=== PATIENT | male | born 1960 | race Caucasian/White ===

== ENCOUNTER 2017-12-20 15:36 | Emergency (ER) | payer OTHER, SELFPAY ==
[2017-12-20 15:37] VITALS: BP 179/91; PULSE 70; RESP 18; TEMP 36.2; O2SAT 98; BMI 26.6
[2017-12-20 15:40] VITALS: PULSE 70; RESP 15; O2SAT 96; O2SAT 97
--- NOTE | 2017-12-20 15:43 | EKG12_ITS ---
Test Reason : SOB Blood Pressure : / mmHG Vent. Rate : 072 BPM Atrial Rate : 072 BPM P-R Int : 160 ms QRS Dur : 086 ms QT Int : 376 ms P-R-T Axes : 021 000 000 degrees QTc Int : 411 ms Normal sinus rhythm Normal ECG Confirmed by SAMARIA KEARNS ([id number]), business editor RIAZ SALDIVAR ([id number]) on 12/24/2017 1:38:52 PM Referred By: MCKAYLA Confirmed By:SAMARIA KEARNS
--- NOTE | 2017-12-20 15:45 | RAD_ITS ---
STUDY: X-RAY CHEST REASON FOR EXAM: Male, 57 years old. Chest pain and cough TECHNIQUE: Single AP portable view of the chest. COMPARISON: None. FINDINGS: EKG leads overlie the chest The lungs are clear and expanded. There is no demonstrated pleural abnormality. Normal size heart. Normal mediastinum and yarely. Normal visualized pulmonary arteries. Normal visualized aortic arch and descending thoracic aorta. Normal visualized thoracic spine. Normal visualized ribs, clavicles, and shoulders. There is no demonstrated abnormality of the visualized soft tissue structures of the upper abdomen. RAD/Chest 1 View (Portable) IMPRESSION: Normal x-ray examination of the chest. Electronically Signed: Lorenzo Menard MD at 16:12 EDT , Service support ,
[2017-12-20 15:56] VITALS: O2SAT 99
--- NOTE | 2017-12-20 15:57 | ED.DCSUM_ITS ---
- ER Visit Summary Date of Service: 12/20/17 Chief Complaint: Shortness of breath History of Present Illness: The patient is a 57 M states that today around noon he just felt short of breath. No chest pain. No hemoptysis. No cough or fever. Denies any history of asthma, COPD or any cardiac disease. Says he actually feels better he is up walking around. Denies any change laying supine. Denies any recent travel, surgery or mobilization. Denies any history of prior DVT or PE. No leg pain or swelling. No hemoptysis. Physical Examination: Well-appearing middle-age male. Vital signs are stable and afebrile. He does not look septic or toxic. He is in no acute distress. His pulse ox is 98% on room air with no signs of hypoxia. HEENT exam unremarkable. Neck nontender, no lymphadenopathy nor any JVD. Trachea midline. Lungs clear to auscultation bilaterally. Equal symmetrical. No rales , rhonchi or wheezing. Heart regular rate and rhythm no murmur. Rate about 70. Chest wall nontender. Abdomen soft nontender normal bowel sounds no peritoneal signs. Moving all 4 extremities. Vital signs are full range of motion. Calves are nontender without edema or cords. Radial pulses are equal symmetrical. Back exam normal. Skin exam normal. Neurologic exam no signs of any focal motor deficits Test Results: See normal white count of 6. Normal H&H. Chemistries normal normal creatinine and gap. Troponin normal. EKG sinus rhythm rate of 72 no acute signs of ID or ischemia. Chest x-ray normal cardiac silhouette and mediastinum. Normal lung shoemaker. Read as normal both by myself the radiologist. Emergency Department Course and Treatment: Patient with atypical dyspnea will undergo workup. Treatment Plan: Repeat exam the patient is doing well at night 24. We went over all his test results. He will need follow-up. At this time I do not have any strong suspicion this was cardiac disease better with walking and has had no recent exertional chest pain or exertional dyspnea. There is no signs of pneumonia. He has absolutely no risk factors for DVT or PE and no physical findings of these. Disposition: Discharge Impression: Acute dyspnea of uncertain etiology This note was generated with [employer] dictation software. It may contain incorrect words, spelling, and punctuation that were not noted in review of the chart prior to signing ED Disposition - Plan for ED Patient: Chief Complaint: Shortness of Breath Referrals: [facility] Doctor,Out of [NON-STAFF] -
[2017-12-20 16:17] VITALS: BP 172/89; PULSE 72; RESP 15; O2SAT 97
[2017-12-20 16:18] LABS: Absolute Lymphocyte Count 1.92 X10^3/ul (0.83-4.51); Absolute Neutrophil Count 3.9 X10^3/uL (2.0-7.7); Basophil# 0.03 X10^3/uL; Basophil% 0.5 % (0-1); Eosinophil# 0.05 X10^3/uL; Eosinophils% 0.8 % (0-5); Hematocrit 45.4 % (40-54); Hemoglobin 15.2 g/dl (13.0-16.5); Lymphocyte # 1.92 X10^3/ul (4.0); Lymphocyte % 29.9 % (19-41); Mean Corp Hgb Conc 33.5 g/gl (32-36); Mean Corpuscular Hgb 30.8 pg (27.0-32.0); Mean Corpuscular Volume 91.9 fL (80-94); Mean Platelet Vol. 9.5 fl (6.2-12.0); Monocyte# 0.53 X10^3/uL; Monocyte% 8.3 % (0-10); Neutrophil # 3.88 X10^3/uL (2.7-7.7); Neutrophil % 60.3 % (47-70); Platelet Count 263 K/mm3 (150-450); RBC Distribution Width CV 13.6 % (11.6-14.6); RBC Distribution Width SD 45.6 fl (35.1-43.9); Red Blood Count 4.94 M/mm3 (4.6-6.2); White Blood Count 6.4 K/mm3 (4.4-11.0)
[2017-12-20 16:20] LABS: POSITIVE COUNT NO; POSITIVE DIFFERENTIAL NO; POSITIVE MORPHOLOGY NO
[2017-12-20 16:30] LABS: Anion Gap 9 (5-15); BUN 13 mg/dL (7-18); BUN/Creat Ratio 13.7 RATIO (10-20); Calcium,Total 9.4 mg/dL (8.5-10.1); Chloride 106 mmol/L (98-107); Creatinine, Serum 0.95 mg/dL (0.70-1.30); EST Glomerular Filtration Rate 87 mL/min (>60); Est Glom Filt Rate - Afr Amer 105 mL/min (>60); Estimated Creatinine Clearance 86.82 ml/min; Glucose 95 mg/dL (74-106); Sodium Level 142 mmol/L (136-145)
[2017-12-20 18:13] VITALS: BP 166/80; PULSE 60; RESP 17; O2SAT 92
--- NOTE | 2017-12-20 19:26 | ED.DEP ---
ED Disposition - Plan for ED Patient: Disposition: Home or Assisted Living Chief Complaint: Shortness of Breath Instructions: ED Dyspnea Shortness of Breath Referrals: [facility],Out of [NON-STAFF] - As soon as possible Additional Instructions: On follow-up your doctor for further evaluation. All your tests tonight in the emergency department are normal. I do not have a specific cause review shortness of breath.
[2017-12-20 19:34] VITALS: BP 162/85; PULSE 58; RESP 14; O2SAT 96
== END 2017-12-20 19:39 | disposition home or self-care (01) ==
PROVIDERS: Emergency Provider Emergency Medicine; Family Provider Family Medicine; PCP Family Medicine
DX: R06.02 Shortness of breath (principal); R03.0 Elevated blood-pressure reading, without diagnosis of hypertension; Z87.891 Personal history of nicotine dependence
CPT/HCPCS: 71045; 80048; 84484; 85025; 93005; 99284; A4216

== ENCOUNTER 2020-12-20 10:01 | Inpatient (IN) | payer OTHER, SELFPAY ==
[2020-12-20] VITALS (23 sets, daily range): BP systolic 108–154; BP diastolic 58–78; PULSE 78–109; RESP 14–36; TEMP 36.6–38.2; O2SAT 72–97; BMI 24.3; BMI 24.0
--- NOTE | 2020-12-20 10:14 | EKG12_ITS ---
Test Reason : SOB Blood Pressure : / mmHG Vent. Rate : 087 BPM Atrial Rate : 087 BPM P-R Int : 146 ms QRS Dur : 088 ms QT Int : 340 ms P-R-T Axes : 014 -07 017 degrees QTc Int : 409 ms Poor data quality, interpretation may be adversely affected Normal sinus rhythm Normal ECG Confirmed by ABRAHAM CONNOR, NORRIS ([id number]), film editor ADRYAN ISRAEL ([id number]) on 12/21/2020 12:41:55 PM Referred By: DEMI Confirmed By:NORRIS ROSARIO MD
--- NOTE | 2020-12-20 10:15 | EDS_ITS ---
HPI History of Present Illness Chief Complaint: Shortness of Breath Informant: patient and spouse/S.O. 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 Patient traveled to [place] last week to be with family. [place]. By Saturday he began to feel shortness of breath that has progressively worsened through the weekend. He states he was trying to make it to his appointment with his oncologist Dr. Durand today but after going down the stairs then back up he was significantly labored breathing. He notes he has had phlegm in the morning which has been unusual for him. He notes several minutes of a fever of 100.6 this morning and last night. He denies any chest pain back pain shoulder pain. No prior history of DVT or PE. Last chemotherapy treatment was about 1-1/2 weeks ago. He does not have a port. No diarrhea or vomiting. Since beginning morphine with Dilaudid for breakthrough pain several weeks ago he has felt more out of it. He denies any prior cardiac history. No prior issues with pleural effusions. [facility] Medical History Lung cancer Home Medications [id number] [Century Adults 50 Plus Tablet] 1 tab PO DAILY 12/20/17 [History Last Taken 12/20/17] Lactobacillus acidophilus 10 mg PO DAILY 12/20/20 [History Last Taken Unknown] dexamethasone [Decadron] 2 mg PO BID 12/20/20 [History Last Taken Unknown] ergocalciferol (vitamin D2) 1 unit PO QWEEK 12/20/20 [History Last Taken Unknown] hydromorphone 2 mg PO Q6H PRN 12/20/20 [History Last Taken Unknown] morphine 15 mg PO BID PRN 12/20/20 [History Last Taken Unknown] ondansetron HCl [Zofran] 8 mg PO Q8H 12/20/20 [History Last Taken Unknown] polyethylene glycol 3350 [Miralax] 17 g PO DAILY 12/20/20 [History Last Taken U nknown] promethazine 25 mg PO Q6H PRN 12/20/20 [History Last Taken Unknown] trazodone 50 - 100 mg PO QHS PRN 12/20/20 [History Last Taken Unknown] Allergy/AdvReac Type Severity Reaction Status Date / Time No Known Allergies Allergy Verified 12/20/20 10:02 Social History (Updated 12/20/20 @ 10:[address] Yohan Childress, DO) Smoking Status: Former smoker substance use type: does not use ROS ROS ED Constitutional Constitutional ED: Denies chills or weight loss Eyes Eyes: Denies change in vision or diplopia ENT ENT ED: Denies ear pain, rhinorrhea or sore throat Cardiovascular Cardiovascular: Denies chest pain, orthopnea, palpitations or racing heartbeat Respiratory/Chest Respiratory/Chest: Reports cough, dyspnea, dyspnea on exertion and sputum; Denies orthopnea Gastrointestinal Gastrointestinal: Reports abdominal pain; Denies diarrhea, nausea or vomiting Genitourinary Genitourinary ED: Denies dysuria, hematuria or urinary frequency Musculoskeletal Musculoskeletal: Reports back pain; Denies arthralgias or myalgias Integumentary Denies abscess or rash Neurologic Neurologic: Denies headache(s) or weakness Psychiatric Psychiatric: Denies anxiety, depression, suicidal ideation or suicidal thoughts Endocrine Endocrinology: Denies polydipsia, polyphagia or polyuria Allergic/Immunologic Allergic/Immunologic ED: Denies mouth swelling, tongue swelling or urticaria EXAM Physical Exam Const Vital Signs: 12/20/20 10:04 12/20/20 10:07 12/20/20 10:21 Temperature 98.5 F 98.5 F Temperature Source Oral Oral Pulse Rate 94 95 Respiratory Rate 36 H 32 H Respiratory Effort Short of Breath Labored Respiratory Depth Normal Respiratory Pattern Tachypnea Blood Pressure 135/70 H 135/70 H Blood Pressure Mean 91 91 Pulse Ox 72 95 Oxygen Delivery Method Room Air Nasal Cannula Nasal Cannula Oxygen Flow Rate (L/min) 4 4 12/20/20 10:22 12/20/20 11:14 12/20/20 11:17 Temperature 98.5 F 98.4 F 98.4 F Temperature Source Oral Oral Oral Pulse Rate 86 89 Respiratory Rate 23 H 25 H Respiratory Effort Respiratory Depth Respiratory Pattern Blood Pressure 132/59 H 120/68 Blood Pressure Mean 83 85 Pulse Ox 97 93 Oxygen Delivery Method Nasal Cannula Nasal Cannula Oxygen Flow Rate (L/min) 2 Positive well nourished and well developed General Appearance ED: well developed HEENT Reports normocephalic, head/scalp atraumatic and moist mucous membranes Eyes PERRL and EOMs intact bilaterally Neck no lymphadenopathy, supple and no JVD Resp clear to auscultation bilaterally Resp Narrative: Patient is tachypneic. Cardio regular rate, regular rhythm and no murmurs GI normal to inspection, nondistended, normoactive bowel sounds and non-tender Palpation: soft Back/Spine no CVA tenderness and normal ROM Extremity normal to inspection General Extremety ED: Negative for edema General Extremity: Negative for edema Neuro oriented x3 and CN's II-XII intact bilaterally Sensorium / Orientation: alert Motor Exam: strength 5/5 throughout Psych mental status grossly normal Mood & Affect: Negative for depressed or tearful Skin no rashes or lesions noted and no wounds MDM MDM MDM Narrative Medical decision making narrative: Patient is 72% on room air. EKG is a normal sinus rhythm. Troponin is 5.5. CTA of the chest demonstrates pulmonary embolism of the left upper lobe. I spoke with his oncologist Dr. Durand. We will plan on admitting him for further management. Hospitalist will be paged. Lab Data Attestation: I reviewed the patient's lab results. Labs: Laboratory Results - last 24 hr 12/20/20 12/20/20 12/20/20 10:28 10:28 10:28 WBC 9.9 RBC 3.63 L Hgb 11.1 L Hct 34.1 L MCV 93.9 MCH 30.6 MCHC 32.6 RDW Std Deviation 58.4 H RDW Coeff of Mathieu 17.1 H Plt Count 244 MPV 8.5 Immature Gran % (Auto) 1.100 H Neut % (Auto) 87.7 H Lymph % (Auto) 7.0 L [place] % (Auto) 3.8 Eos % (Auto) 0.2 Baso % (Auto) 0.2 Absolute Neuts (auto) 8.6 H Absolute Lymphs (auto) 0.69 L Nucleated RBC % 0 PT 14.1 INR 1.2 APTT 24.0 L Sodium 133 L Potassium 3.9 Chloride 101 Carbon Dioxide 25.0 Anion Gap 7 BUN 14 Creatinine 0.69 L Estim Creat Clear Calc 115.27 Est GFR (MDRD) Af Amer 150 Est GFR (MDRD) Non-Af 124 BUN/Creatinine Ratio 20.3 H Glucose 91 Lactic Acid Calcium 8.3 L Total Bilirubin 0.40 AST 70 H ALT 48 Alkaline Phosphatase 134 H Troponin I High Sens 5.5 Total Protein 6.8 Albumin 3.0 L Globulin 3.8 Albumin/Globulin Ratio 0.8 L 12/20/20 10:28 WBC RBC Hgb Hct MCV MCH MCHC RDW Std Deviation RDW Coeff of Mathieu Plt Count MPV Immature Gran % (Auto) Neut % (Auto) Lymph % (Auto) [place] % (Auto) Eos % (Auto) Baso % (Auto) Absolute Neuts (auto) Absolute Lymphs (auto) Nucleated RBC % PT INR APTT Sodium Potassium Chloride Carbon Dioxide Anion Gap BUN Creatinine Estim Creat Clear Calc Est GFR (MDRD) Af Amer Est GFR (MDRD) Non-Af BUN/Creatinine Ratio Glucose Lactic Acid 1.6 Calcium Total Bilirubin AST ALT Alkaline Phosphatase Troponin I High Sens Total Protein Albumin Globulin Albumin/Globulin Ratio Radiography Diagnostic Testing: Radiology Impression Chest CTA 12/20/20 11:00 IMPRESSION: Pulmonary embolism involving the branches of the left upper lobe pulmonary artery. Mediastinal and hilar lymphadenopathy as well as a mass in the anterior superior aspect of the mediastinum as described. Spiculated nodule in the left upper lobe. Diffuse groundglass appearance with the scarring worse in the right hemithorax. Liver metastasis. Retroperitoneal lymphadenopathy. Electronically Signed: Keny Dickey MD at 11:25 EDT , Service support , EKG Initial EKG: Attestation: I personally reviewed and interpreted this EKG as follows: Comments: EKG demonstrates a normal sinus rhythm at a ventricular rate of 87 bpm. Discharge Plan Dx/Rx/DC Orders Clinical Impression: Pulmonary embolism, Acute hypoxemic respiratory failure Disposition Disposition: Acute Care [facility]
[2020-12-20] MEDS: 0.9% Normal Saline 1,000 ML 999 ML IV (10:34)
[2020-12-20 10:37] LABS: Absolute Lymphocyte Count 0.69 X10^3/uL (0.83-4.51); Absolute Neutrophil Count 8.6 X10^3/uL (2.0-7.7); Basophil# 0.02 X10^3/uL; Basophil% 0.2 % (0-1); Eosinophil# 0.02 X10^3/uL; Eosinophils% 0.2 % (0-5); Hematocrit 34.1 % (40-54); Hemoglobin 11.1 g/dL (13.0-16.5); Lymphocyte # 0.69 X10^3/ul (0.83-4.51); Mean Corp Hgb Conc 32.6 g/dL (32-36); Mean Corpuscular Hgb 30.6 pg (27.0-32.0); Mean Corpuscular Volume 93.9 fL (80-94); Mean Platelet Vol. 8.5 fl (6.2-12.0); Monocyte# 0.37 X10^3/uL; Monocyte% 3.8 % (0-10); NRBC Flagged by Analyzer 0 % (0-5); Neutrophil # 8.64 X10^3/uL (2.7-7.7); Neutrophil % 87.7 % (47-70); Platelet Count 244 K/mm3 (150-450); RBC Distribution Width CV 17.1 % (11.6-14.6); RBC Distribution Width SD 58.4 fl (35.1-43.9); Red Blood Count 3.63 M/mm3 (4.6-6.2); White Blood Count 9.9 K/mm3 (4.4-11.0)
[2020-12-20 10:47] LABS: International Normalized Ratio 1.2; Prothrombin Time (Protime)PT. 14.1 SECONDS (11.7-14.9)
[2020-12-20 10:58] LABS: ALB/GLOB Ratio 0.8 RATIO (0.9-2.4); AST(SGOT) 70 U/L (15-37); Alanine Aminotransfer ALT/SGPT 48 U/L (16-61); Alkaline Phosphatase 134 U/L (45-117); Anion Gap 7 (5-15); BUN 14 mg/dL (7-18); BUN/Creat Ratio 20.3 RATIO (10-20); Calcium,Total 8.3 mg/dL (8.5-10.1); Chloride 101 mmol/L (98-107); Creatinine, Serum 0.69 mg/dL (0.70-1.30); EST Glomerular Filtration Rate 124 mL/min (>60); Est Glom Filt Rate - Afr Amer 150 mL/min (>60); Estimated Creatinine Clearance 115.27 ml/min; Globulin 3.8 g/dL (2.2-4.2); Glucose 91 mg/dL (74-106); Potassium 3.9 mmol/L (3.5-5.1); Protein, Total 6.8 g/dL (6.4-8.2); Sodium Level 133 mmol/L (136-145); Troponin-I HS 5.5 pg/mL (3.0-78.5)
--- NOTE | 2020-12-20 11:00 | CT_ITS ---
STUDY: CTA CHEST REASON FOR EXAM: Male, 60 years old. Hypoxia RADIATION DOSAGE (If Supplied By Facility): CTDIvol = ( 17.23 ) mGy, DLP = ( 387.49 ) mGycm TECHNIQUE: The examination was performed with the intravenous administration of IV 100mL Isovue-370. Post-processing of the angiographic images was performed, with multiplanar reformation and 3D reconstruction. Individualized dose optimization techniques were used for this CT. COMPARISON: None. FINDINGS: There is evidence of a intraluminal filling defects in branches of the left upper lobe pulmonary artery in keeping with left pulmonary arterial embolism. Normal thoracic aorta and visualized great vessels. There is no demonstrated aortic dissection. Normal heart and pericardium. There is evidence of a mediastinal lymphadenopathy. There is a 4.3 cm x 4.3 cm x 4.1 cm soft tissue mass in the anterior superior mediastinum. This causes narrowing of the left brachiocephalic vein as it enters the superior vena cava. The soft tissue mass extends into the left hilar and perihilar region. There is evidence of subcarinal lymphadenopathy. Right hilar lymphadenopathy as well. Normal visualized trachea and bronchi. There is elevation of the right hemidiaphragm. There is evidence of diffuse groundglass appearance in both lungs worse in the right lung with multiple bullous changes. There is a 2.1 cm x 1.1 cm spiculated nodule in the anterior aspect of the left upper lobe. 6 mm nodule in the anterior aspect of the left lower lobe abutting the major fissure. Normal pleura. Normal chest wall structures. Diffuse sclerotic bony metastasis. Limited visualization of the liver demonstrates multiple hypodense nodules suggestive of liver metastasis. There is evidence of retroperitoneal lymphadenopathy. There is evidence of a 9 mm cyst in the upper pole of the left kidney. CT/CTA Chest W/WO Contrast IMPRESSION: Pulmonary embolism involving the branches of the left upper lobe pulmonary artery. Mediastinal and hilar lymphadenopathy as well as a mass in the anterior superior aspect of the mediastinum as described. Spiculated nodule in the left upper lobe. Diffuse groundglass appearance with the scarring worse in the right hemithorax. Liver metastasis. Retroperitoneal lymphadenopathy. Electronically Signed: Keny Dickey MD at 11:25 EDT , Service support ,
[2020-12-20 11:02] LABS: Lactic Acid 1.6 mmol/L (0.4-1.9)
[2020-12-20] MEDS: Enoxaparin 80 MG/0.8 ML Syringe SC (12:04)
[2020-12-20] MEDS: 0.9% Normal Saline 1,000 ML 75 ML IV (13:17)
[2020-12-20] MEDS: 0.9% Saline Lock 10 ML Syringe IV ×3 (13:18→21:13)
--- NOTE | 2020-12-20 15:12 | PCM.HP.STD ---
Documented by User: Eugenie Ramey NP, FINAL TOUCH UP PAINTER-C 12/20/20 15:28 HPI - General General Date of Admission: 12/20/20 Chief Complaint: Shortness of breath. HPI Narrative LESLY MALDONADO, is a 60 M who presents to the emergency room due to shortness of breath. Patient states he traveled to [place] recently. On Saturday prior to returning home he noticed mild shortness of breath which is worsened since that time. He returned home on Saturday and his shortness of breath had worsened at that point. He denies lightheadedness, chest pain or other associated symptoms. He denies history of DVT/PE. He states he checked his oxygen level with a pulse oximeter at home this morning and it read 73%. He is currently undergoing chemotherapy for small cell lung cancer with last treatment December 02. He denies other medical history. He is a former smoker, quit 3 years ago. [facility] Medical History (Updated 12/20/20 @ 11:[address] Yohan Childress, DO) Lung cancer Home Medications [id number]-VZ-lycopen-lutein [Century Adults 50 Plus Tablet] 1 tab PO DAILY 12/20/17 [History Last Taken 12/20/17] Lactobacillus acidophilus 10 mg PO DAILY 12/20/20 [History Last Taken Unknown] dexamethasone [Decadron] 2 mg PO BID 12/20/20 [History Last Taken Unknown] ergocalciferol (vitamin D2) 1 unit PO QWEEK 12/20/20 [History Last Taken Unknown] hydromorphone 2 mg PO Q6H PRN 12/20/20 [History Last Taken Unknown] morphine 15 mg PO BID 12/20/20 [History Last Taken Unknown] ondansetron HCl [Zofran] 8 mg PO Q8H PRN PRN 12/20/20 [History Last Taken Unknown] polyethylene glycol 3350 [Miralax] 17 g PO DAILY 12/20/20 [History Last Taken Unknown] promethazine 25 mg PO Q6H PRN 12/20/20 [History Last Taken Unknown] Allergy/AdvReac Type Severity Reaction Status Date / Time No Known Allergies Allergy Verified 12/20/20 10:02 Family History (Updated 12/20/20 @ 15:24 by Eugenie Ramey FINAL TOUCH UP PAINTER, FINAL TOUCH UP PAINTER-C) Father Heart disease Mother Heart disease Surgical History (Updated 12/20/20 @ 15:24 by Eugenie Ramey FINAL TOUCH UP PAINTER, FINAL TOUCH UP PAINTER-C) S/P tonsillectomy Social History (Updated 12/20/20 @ 10:[address] Yohan Childress, DO) Smoking Status: Former smoker substance use type: does not use ROS Constitutional Constitutional: Denies change in weight, chills, fatigue, fever(s) or weakness Cardiovascular Cardiovascular: Denies chest pain, edema, lightheadedness, palpitations or syncope Respiratory/Chest Respiratory/Chest: Reports dyspnea and shortness of breath at rest; Denies cough, productive cough or wheezing Gastrointestinal Gastrointestinal: Denies abdominal pain, constipation, diarrhea, nausea or vomiting Genitourinary Genitourinary: Denies burning urination, difficulty urinating, dysuria, hematuria, urinary frequency, urinary incontinence or urinary urgency Musculoskeletal Musculoskeletal: Denies back pain, joint pain or muscle weakness Integumentary Integumentary: Denies erythema, lesions, rash or wounds Neurologic Neurologic: Denies abnormal speech, confusion, dizziness, focal weakness, numbness, paresthesias, seizure-like activity or syncope Psychiatric Psychiatric: Denies anxiety or depression Hematologic/Lymphatic Hematologic/Lymphatic: Denies anemia, easy bleeding or easy bruising Allergic/Immunologic Allergic/Immunologic: Denies hives or asthma Vital Signs Vital Signs Vital Signs: 12/20/20 10:04 12/20/20 10:07 12/20/20 10:21 Temperature 98.5 F 98.5 F Temperature Source Oral Oral Pulse Rate 94 95 Respiratory Rate 36 H 32 H Respiratory Effort Short of Breath Labored Respiratory Depth Normal Respiratory Pattern Tachypnea Blood Pressure 135/70 H 135/70 H Blood Pressure Mean 91 91 Blood Pressure Source Blood Pressure Position Blood Pressure Location Pulse Ox 72 95 Oxygen Delivery Method Room Air Nasal Cannula Nasal Cannula Oxygen Flow Rate (L/min) 4 4 12/20/20 10:22 12/20/20 11:14 12/20/20 11:17 Temperature 98.5 F 98.4 F 98.4 F Temperature Source Oral Oral Oral Pulse Rate 86 89 Respiratory Rate 23 H 25 H Respiratory Effort Respiratory Depth Respiratory Pattern Blood Pressure 132/59 H 120/68 Blood Pressure Mean 83 85 Blood Pressure Source Blood Pressure Position Blood Pressure Location Pulse Ox 97 93 Oxygen Delivery Method Nasal Cannula Nasal Cannula Oxygen Flow Rate (L/min) 2 12/20/20 12:07 12/20/20 12:18 12/20/20 12:27 Temperature 98.2 F 98.2 F 97.9 F Temperature Source Oral Oral Oral Pulse Rate 78 83 79 Respiratory Rate 14 20 H 18 Respiratory Effort Respiratory Depth Respiratory Pattern Blood Pressure 124/68 H 124/68 H 128/67 H Blood Pressure Mean 86 86 87 Blood Pressure Source Monitor Blood Pressure Position Semi-Fowlers Blood Pressure Location Right Arm Pulse Ox 92 92 93 Oxygen Delivery Method Nasal Cannula Nasal Cannula Nasal Cannula Oxygen Flow Rate (L/min) 5 5 5 12/20/20 13:12 12/20/20 14:47 Temperature Temperature Source Pulse Rate 94 Respiratory Rate Respiratory Effort Respiratory Depth Respiratory Pattern Blood Pressure Blood Pressure Mean Blood Pressure Source Blood Pressure Position Blood Pressure Location Pulse Ox 93 Oxygen Delivery Method Nasal Cannula Oxygen Flow Rate (L/min) 5 Weight Weight: 162 lb 14.746 oz Body Mass Index (BMI) 24.0 Physical Exam Const alert, oriented x3 and no apparent distress Orientation / Consciousness: awake, oriented to person, oriented to place and oriented to time HEENT normocephalic and moist oral mucous membranes Eyes PERRL, EOMs intact bilaterally and conjunctivae normal Neck no lymphadenopathy Resp clear to auscultation bilaterally Auscultation: diminished lung sounds Cardio regular rate, regular rhythm and no murmurs Peripheral Pulses: pulses 2+ throughout GI normal to inspection, nondistended, normoactive bowel sounds, non-tender and non-distended Extremity normal to inspection Skin no rashes or lesions noted Lesions: no lesions Rashes: no rashes Trauma: no lacerations or abrasions Neuro CN's II-XII intact bilaterally, no focal motor deficits, no sensory deficits noted and deep tendon reflexes 2+ bilaterally Psych mental status grossly normal and affect normal Results Lab / Micro Data Result Diagrams: 12/20/20 10:28 12/20/20 10:28 Labs: Laboratory Results - last 24 hr 12/20/20 10:28: WBC 9.9, RBC 3.63 L, Hgb 11.1 L, Hct 34.1 L, MCV 93.9, MCH 30.6, MCHC 32.6, RDW Std Deviation 58.4 H, RDW Coeff of Mathieu 17.1 H, Plt Count 244, MPV 8.5, Immature Gran % (Auto) 1.100 H, Neut % (Auto) 87.7 H, Lymph % (Auto) 7.0 L, [place] % (Auto) 3.8, Eos % (Auto) 0.2, Baso % (Auto) 0.2, Absolute Neuts (auto) 8.6 H, Absolute Lymphs (auto) 0.69 L, Nucleated RBC % 0 12/20/20 10:28: PT 14.1, INR 1.2, APTT 24.0 L 12/20/20 10:28: Sodium 133 L, Potassium 3.9, Chloride 101, Carbon Dioxide 25.0, Anion Gap 7, BUN 14, Creatinine 0.69 L, Estim Creat Clear Calc 115.27, Est GFR (MDRD) Af Amer 150, Est GFR (MDRD) Non-Af 124, BUN/Creatinine Ratio 20.3 H, Glucose 91, Calcium 8.3 L, Total Bilirubin 0.40, AST 70 H, ALT 48, Alkaline Phosphatase 134 H, Troponin I High Sens 5.5, Total Protein 6.8, Albumin 3.0 L, Globulin 3.8, Albumin/Globulin Ratio 0.8 L 12/20/20 10:28: Lactic Acid 1.6 Micro: Microbiology 12/20/20 10:30 Mucosa - Nose SARS-CoV-2 Antigen (Rapid) - Final Radiology Impression Chest CTA 12/20/20 11:00 IMPRESSION: Pulmonary embolism involving the branches of the left upper lobe pulmonary artery. Mediastinal and hilar lymphadenopathy as well as a mass in the anterior superior aspect of the mediastinum as described. Spiculated nodule in the left upper lobe. Diffuse groundglass appearance with the scarring worse in the right hemithorax. Liver metastasis. Retroperitoneal lymphadenopathy. Electronically Signed: Keny Dickey MD at 11:25 EDT , Service support , Assessment & Plan Assessment/Plan (1) Acute hypoxemic respiratory failure: (2) Pulmonary embolism: PLAN: 1. Acute hypoxic respiratory insufficiency secondary to acute PE-CTA of chest shows pulmonary embolism involving the branches of the left upper lobe pulmonary artery. Therapeutic Lovenox. Continue supplement oxygen to maintain O2 at or above 90%. Walking pulse ox prior to discharge. 2. 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 Durand. 3. Former tobacco use-quit 3 years ago. Encouraged continued cessation. DVT prophylaxis-Lovenox subcu This patient was seen by OLGA LIDIA AvilesC under the supervision of Dr. Cameron. Documented by User: Dr. Serafin Cameron DO 12/20/20 17:35 HPI - General General Date of Admission: 12/20/20 [facility] Medical History (Updated 12/20/20 @ 11:[address] Yohan Childress, DO) Lung cancer Home Medications [id number]-tuk-SO-lycopen-lutein [Century Adults 50 Plus Tablet] 1 tab PO DAILY 12/20/17 [History Last Taken 12/20/17] Lactobacillus acidophilus 10 mg PO DAILY 12/20/20 [History Last Taken Unknown] dexamethasone [Decadron] 2 mg PO BID 12/20/20 [History Last Taken Unknown] ergocalciferol (vitamin D2) 1 unit PO QWEEK 12/20/20 [History Last Taken Unknown] hydromorphone 2 mg PO Q6H PRN 12/20/20 [History Last Taken Unknown] morphine 15 mg PO BID 12/20/20 [History Last Taken Unknown] ondansetron HCl [Zofran] 8 mg PO Q8H PRN PRN 12/20/20 [History Last Taken Unknown] polyethylene glycol 3350 [Miralax] 17 g PO DAILY 12/20/20 [History Last Taken Unknown] promethazine 25 mg PO Q6H PRN 12/20/20 [History Last Taken Unknown] Allergy/AdvReac Type Severity Reaction Status Date / Time No Known Allergies Allergy Verified 12/20/20 10:02 Family History (Updated 12/20/20 @ 15:24 by Eugenie Ramey FINAL TOUCH UP PAINTER, FINAL TOUCH UP PAINTER-C) Father Heart disease Mother Heart disease Surgical History (Updated 12/20/20 @ 15:24 by Eugenie Ramey NP, FINAL TOUCH UP PAINTER-C) S/P tonsillectomy Social History (Updated 12/20/20 @ 10:[address] Yohan Childress, DO) Smoking Status: Former smoker substance use type: does not use Results Lab / Micro Data Result Diagrams: 12/20/20 10:28 12/20/20 10:28 Charges/Coding Addendum Addendum: Patient was seen and examined independently of Eugenie Ramey, he came to the emergency room today at [facility] complaining of shortness of breath, this started several days ago, patient was recently on a trip to [place]. Patient has a history of small cell lung cancer that was diagnosed this year and is currently under chemotherapy. He has known metastases to the bone and liver. On examination he appeared in good health and spirits. Vital signs as documented. Skin warm and dry and without overt rashes. Neck without JVD, neck was supple, trachea midline, thyroid was normal. Lungs-auscultation of the right lung reveals inspiratory rales over the lower two thirds of the lung field on the right, normal air movement was noted. Heart exam notable for regular rhythm, normal sounds and absence of murmurs, rubs or gallops. Abdomen unremarkable and without evidence of organomegaly, masses, or abdominal aortic enlargement. Bowel sounds are present, abdomen is not distended. Extremities nonedematous, no cyanosis was noted, no clubbing was noted. Neuro: Cranial nerves II through XII are grossly intact, no focal motor deficits were noted, sensation to light touch and pinprick intact, motor exam 5/5 throughout. Psych: Patient is alert and oriented x3, he does not appear anxious or depressed, he does not appear agitated. CTA of the patient's chest performed in the emergency room shows the presence of a pulmonary embolism involving the branches of the left upper lobe pulmonary artery, there was also mediastinal and hilar lymphadenopathy as well as a mass in the anterior superior aspect of the mediastinum. There is a spiculated nodule noted in the left upper lobe and there was diffuse groundglass appearance in the right hemithorax with scarring noted to be present. Finally, liver metastases were noted as well as retroperitoneal lymphadenopathy. Patient was hypoxic on room air, he required supplemental oxygen to maintain his pulse ox above 90%. Patient was initially placed in observation status on PCU but due to increasing oxygen requirements, patient was made a full admission. He will be treated with subcu Lovenox and supplemental oxygen. I have reviewed Eugenie Ramey's history and physical including her medical assessment and plan of care and endorse it. Visit Charges Inpatient E&M: 20598 Init Hosp L3
[2020-12-20] MEDS: dexAMETHasone 2 MG TABLET PO (17:13)
[2020-12-20 17:50] LABS: Allen Test Positive; Base Excess -3 mmol/L (-2 to +2); Blood Gas Specimen Type ART; O2 Delivery Device Cannula; PO2 37 mmHG (75-100); SITE R Brach; SO2 75 % (95-99); Total Carbon Dioxide 22 mmol/L; pH 7.47 (7.35-7.45)
--- NOTE | 2020-12-20 18:00 | CPS ---
Unable to obtain P-ox reading on patient, tried multiple site and pt is shaking, says he is freezing but w/o fever. Placed pt on HFNC @12lpm after ABG result. SHERITA ferrell Dr w/results.
[2020-12-20 18:41] LABS: BNP,B-Type NATRIURETIC PEPTIDE 42.8 pg/mL (0-100)
--- NOTE | 2020-12-20 18:45 | NURSING ---
Report called to SHERITA Marquez in ICU.
[2020-12-20] MEDS: Ipratropium/Albuterol Sulfate 3 ML AMPUL.NEB INHALATION (19:24)
[2020-12-20] MEDS: Acetaminophen 325 MG Tablet 650 MG PO (19:53)
--- NOTE | 2020-12-20 20:54 | NURSING ---
1856- Patient arrived from PCU 109 to ICU room 4 in stable condition.
[2020-12-20] MEDS: morphine SR 15 MG Tablet PO (21:12)
[2020-12-20] MEDS: Enoxaparin 80 MG/0.8 ML Syringe 70 MG SC (21:14)
[2020-12-21] VITALS (35 sets, daily range): BP systolic 89–141; BP diastolic 55–82; PULSE 74–94; RESP 15–37; TEMP 36.3–36.6; O2SAT 90–98
[2020-12-21 03:36] LABS: Absolute Lymphocyte Count 0.65 X10^3/uL (0.83-4.51); Absolute Neutrophil Count 9.9 X10^3/uL (2.0-7.7); Basophil# 0.02 X10^3/uL; Basophil% 0.2 % (0-1); Hematocrit 32.5 % (40-54); Hemoglobin 10.4 g/dL (13.0-16.5); Lymphocyte # 0.65 X10^3/ul (0.83-4.51); Mean Corpuscular Hgb 30.3 pg (27.0-32.0); Mean Corpuscular Volume 94.8 fL (80-94); Monocyte# 0.28 X10^3/uL; Monocyte% 2.6 % (0-10); NRBC Flagged by Analyzer 0 % (0-5); Neutrophil # 9.87 X10^3/uL (2.7-7.7); Neutrophil % 90.3 % (47-70); Platelet Count 250 K/mm3 (150-450); RBC Distribution Width CV 17.3 % (11.6-14.6); RBC Distribution Width SD 60.2 fl (35.1-43.9); Red Blood Count 3.43 M/mm3 (4.6-6.2); White Blood Count 10.9 K/mm3 (4.4-11.0)
[2020-12-21 03:48] LABS: Anion Gap 8 (5-15); BUN 10 mg/dL (7-18); BUN/Creat Ratio 15.5 RATIO (10-20); Calcium,Total 7.4 mg/dL (8.5-10.1); Chloride 102 mmol/L (98-107); Creatinine, Serum 0.65 mg/dL (0.70-1.30); EST Glomerular Filtration Rate 134 mL/min (>60); Est Glom Filt Rate - Afr Amer 162 mL/min (>60); Estimated Creatinine Clearance 122.37 ml/min; Glucose 104 mg/dL (74-106); Potassium 4.1 mmol/L (3.5-5.1); Sodium Level 136 mmol/L (136-145)
[2020-12-21] MEDS: CHLORHEXIDINE GLUC 2% CLOTH 1 EACH TOWELETTE TOPICAL (05:40)
--- NOTE | 2020-12-21 06:46 | EX.PCM.CONCC ---
Assessment & Plan Assessment/Plan (1) Acute hypoxemic respiratory failure: (2) Pulmonary embolism: (3) Rhinovirus infection: (4) COPD exacerbation: PLAN: RECOMMENDATIONS: 1. Transition from Decadron to Solu-Medrol 2. Possibly discontinue antibiotics at 48 hours of culture negative 3. Continue therapeutic Lovenox 4. Minimize IV fluids. Okay to take p.o. 5. Potentially transfer from the intensive care unit tomorrow IMPRESSIONS: 1. Acute hypoxic respiratory failure secondary to pulmonary embolism and suspected COPD exacerbation secondary to rhinovirus Patient with multiple etiologies of acute hypoxic respiratory failure. 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 Patient is appropriately on Lovenox therapy. Patient has tested positive for rhinovirus and has emphysematous changes noted on CT scan. Clinical suspicion for an acute COPD exacerbation secondary to rhinovirus, but PFTs to confirm COPD have not been done. This can be completed as an outpatient. Will transition patient to Solu-Medrol from Decadron. Would recommend minimizing IV fluids as long as patient remains normotensive. Potentially able to discontinue antibiotics at 48 hours if cultures negative. 2. 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 Patient does state that he would want to be a full code at this time, but wants to check with his . Given malignancy, Lovenox is likely the anticoagulation of choice. HPI Consult Data Date of Consult: 12/21/20 HPI Narrative HPI Narrative: LESLY MALDONADO is a 60 M, with past medical history listed below, who presents to [facility] on 12/20/2020 secondary to progressive shortness of breath following a family vacation. Patient reportedly started to have shortness of breath on Saturday that progressively got worse through the weekend. Patient reportedly had an appointment with Dr. Durand on the day of presentation, but felt he needed to come to the ER because of his breathing. Patient had started to report increase in phlegm, which was unusual for him. Patient also noted a fever of 100.6 ?F on the morning of presentation. Patient reportedly received his last chemotherapy approximately 1-1/2 weeks ago, but was not reporting any nausea, vomiting or diarrhea. Patient reportedly does not see a dynamite packing machine feeder at baseline. In the ER, patient was afebrile, but noted to be 72% on room air. Patient was tachypneic breathing 36 times a minute, but did improve after initiation of nasal cannula oxygen. Blood pressures were acceptable. Laboratory work-up showed an anemia of 11.1, normal coagulation studies and normal chemistries. Patient's initial lactate was 1.6. Given hypoxia and recent travel, a CTA of the chest was obtained showing a left upper lobe pulmonary embolism, mediastinal and hilar lymphadenopathy with a mass in the anterior aspect of the mediastinum and spiculated nodule of the left upper lobe. Patient also noted to have a diffuse groundglass appearance. Given patient's high oxygen requirements, patient was admitted to the intensive care unit. Overnight, patient has been placed on Airvo at 60% with improvement in oxygenation. Patient subjectively feels slightly improved compared to previous. Patient is not reporting any bleeding complications such as hemoptysis, melena or hematochezia. Patient does report an extensive smoking history, but is never been seen by dynamite packing machine feeder. Patient is unclear if he is ever had a pulmonary function test. Patient does not use supplemental oxygen at baseline. Patient reports that he does not normally make sputum on a daily basis, but does occasionally have a dry cough in the morning. Patient is not typically on inhaler therapy at baseline. Review of systems otherwise negative from a constitutional, HEENT, respiratory, cardiovascular, GI, genitourinary, musculoskeletal, skin, neurologic, psychiatric and hematologic system unless stated above. [facility], [facility] Medical History (Updated 12/21/20 @ 06:[address] Sixto Jamison MD) Lung cancer Home Medications [id number]-com-GH-lycopen-lutein [Century Adults 50 Plus Tablet] 1 tab PO DAILY 12/20/17 [History Last Taken 12/20/17] Lactobacillus acidophilus 10 mg PO DAILY 12/20/20 [History Last Taken Unknown] dexamethasone [Decadron] 2 mg PO BID 12/20/20 [History Last Taken Unknown] ergocalciferol (vitamin D2) 1 unit PO QWEEK 12/20/20 [History Last Taken Unknown] hydromorphone 2 mg PO Q6H PRN 12/20/20 [History Last Taken Unknown] morphine 15 mg PO BID 12/20/20 [History Last Taken Unknown] ondansetron HCl [Zofran] 8 mg PO Q8H PRN PRN 12/20/20 [History Last Taken Unknown] polyethylene glycol 3350 [Miralax] 17 g PO DAILY 12/20/20 [History Last Taken Unknown] promethazine 25 mg PO Q6H PRN 12/20/20 [History Last Taken Unknown] Allergy/AdvReac Type Severity Reaction Status Date / Time No Known Allergies Allergy Verified 12/20/20 10:02 Family History (Updated 12/20/20 @ 15:24 by Eugenie Ramey ENGINEERING TECHNICAL SPECIALIST, ENGINEERING TECHNICAL SPECIALIST-C) Father Heart disease Mother Heart disease Surgical History (Updated 12/20/20 @ 15:24 by Eugenie Ramey NP, ENGINEERING TECHNICAL SPECIALIST-C) S/P tonsillectomy Social History (Updated 12/20/20 @ 10:[address] Yohan Childress, DO) Smoking Status: Former smoker substance use type: does not use ROS ROS Narrative See HPI Physical Exam Const alert, oriented x3 and no apparent distress General Appearance: cooperative and well developed HEENT normocephalic, head/scalp atraumatic and moist oral mucous membranes Eyes PERRL and EOMs intact bilaterally Neck full ROM and no lymphadenopathy Chest inspection of chest normal Resp Resp Narrative: Mild respiratory distress despite Airvo Effort and Inspection: able to speak in complete sentences and prolonged expiratory phase Auscultation: diminished lung sounds; Negative for rales, rhonchi or wheezes Percussion: Negative for dullness Cardio regular rate, regular rhythm, S1 normal heart sound, S2 normal heart sound, no murmurs, no rub and no gallops GI normal to inspection, nondistended, normoactive bowel sounds no CVA tenderness Extremity no clubbing, cyanosis or edema Skin no rashes or lesions noted Neuro oriented x3, CN's II-XII intact bilaterally, moves all extremities and no focal motor deficits Psych cooperative and affect normal Lab / Micro Data Result Diagrams: 12/21/20 03:30 12/21/20 03:30 Labs: Laboratory Results - last 24 hr 12/20/20 10:28: WBC 9.9, RBC 3.63 L, Hgb 11.1 L, Hct 34.1 L, MCV 93.9, MCH 30.6, MCHC 32.6, RDW Std Deviation 58.4 H, RDW Coeff of Mathieu 17.1 H, Plt Count 244, MPV 8.5, Immature Gran % (Auto) 1.100 H, Neut % (Auto) 87.7 H, Lymph % (Auto) 7.0 L, [place] % (Auto) 3.8, Eos % (Auto) 0.2, Baso % (Auto) 0.2, Absolute Neuts (auto) 8.6 H, Absolute Lymphs (auto) 0.69 L, Nucleated RBC % 0 12/20/20 10:28: PT 14.1, INR 1.2, APTT 24.0 L 12/20/20 10:28: Sodium 133 L, Potassium 3.9, Chloride 101, Carbon Dioxide 25.0, Anion Gap 7, BUN 14, Creatinine 0.69 L, Estim Creat Clear Calc 115.27, Est GFR (MDRD) Af Amer 150, Est GFR (MDRD) Non-Af 124, BUN/Creatinine Ratio 20.3 H, Glucose 91, Calcium 8.3 L, Total Bilirubin 0.40, AST 70 H, ALT 48, Alkaline Phosphatase 134 H, Troponin I High Sens 5.5, Total Protein 6.8, Albumin 3.0 L, Globulin 3.8, Albumin/Globulin Ratio 0.8 L 12/20/20 10:28: Lactic Acid 1.6 12/20/20 10:28: B-Natriuretic Peptide 42.8 12/20/20 19:08: COVID-19 (NORA) Not Detected 12/21/20 03:30: WBC 10.9, RBC 3.43 L, Hgb 10.4 L, Hct 32.5 L, MCV 94.8 H, MCH 30.3, MCHC 32.0, RDW Std Deviation 60.2 H, RDW Coeff of Mathieu 17.3 H, Plt Count 250, MPV 9.0, Immature Gran % (Auto) 0.900, Neut % (Auto) 90.3 H, Lymph % (Auto) 6.0 L, [place] % (Auto) 2.6, Eos % (Auto) 0.0, Baso % (Auto) 0.2, Absolute Neuts (auto) 9.9 H, Absolute Lymphs (auto) 0.65 L, Nucleated RBC % 0 12/21/20 03:30: Sodium 136, Potassium 4.1, Chloride 102, Carbon Dioxide 26.0, Anion Gap 8, BUN 10, Creatinine 0.65 L, Estim Creat Clear Calc 122.37, Est GFR (MDRD) Af Amer 162, Est GFR (MDRD) Non-Af 134, BUN/Creatinine Ratio 15.5, Glucose 104, Calcium 7.4 L Micro: Microbiology 12/20/20 19:08 Mucosa - Nasopharyngeal Respiratory Panel (PCR) - Final Rhinovirus 12/20/20 21:30 Urine, Random Legionella Antigen - Final 12/20/20 21:30 Urine, Random Streptococcus pneumoniae Antigen (M - Final 12/20/20 10:30 Mucosa - Nose SARS-CoV-2 Antigen (Rapid) - Final ABG Data ABG results: ABG 12/20/20 17:40 Specimen Type ART Sample Site R Brach pH 7.47 H Bicarbonate Actual 21.0 L Total CO2 22 Base Excess -3 L O2 Saturation 75 L ABG pCO2 29.0 L ABG pO2 37 L* Primo Test Positive O2 Delivery Device Cannula Liter Flow 6.0 Crit Call To/Read Back Yes Blood Gas Notified Whom Radiology Impression Chest CTA 12/20/20 11:00 IMPRESSION: Pulmonary embolism involving the branches of the left upper lobe pulmonary artery. Mediastinal and hilar lymphadenopathy as well as a mass in the anterior superior aspect of the mediastinum as described. Spiculated nodule in the left upper lobe. Diffuse groundglass appearance with the scarring worse in the right hemithorax. Liver metastasis. Retroperitoneal lymphadenopathy. Electronically Signed: Keny Dickey MD at 11:25 EDT , Service support , Charges/Coding Visit Charges Inpatient E&M: 06679 Init Hosp L3
[2020-12-21] MEDS: Ipratropium/Albuterol Sulfate 3 ML AMPUL.NEB INHALATION ×5 (07:13→22:52)
[2020-12-21] MEDS: morphine SR 15 MG Tablet PO ×2 (08:28→20:20)
--- NOTE | 2020-12-21 10:05 | CASEMGMT ---
SHERITA JAFFE Face to Face with patient for initial transition planning/care coordination assessment. RN CM introduced self and role at [facility]. Patient lying in bed, alert and oriented. Patient willing to participate in assessment and is able to answer all questions appropriately. Care providers, pharmacy, and demographics verified. Patient wishes to discharge home, will monitor need for HHC pending progress with therapy. Patient currently on high flow oxygen, will montior for need for home oxygen at discharge. Patient states he has no further needs or concerns at this time. CM to follow for discharge planning needs that may arise. PCP: Stanley Specialists: Kizzy, oncologist Preferred Pharmacy: [facility] Insurance: MMO Prescription Benefit: yes Living Will/HPOA: none, interested in completing, SW updated LNOK: Living Arrangements: Patient lives with in a 2 story home with bed and bath on main level. 4-5 steps and railing to enter the home. Patient states he is independent at home. Transportation: self/ DME/HHC: patietn states he has raised toilet, Pulse ox, and BP cuff at home. Patient states he has no preference for DME. Will monitor for home oxygen and HHC Disposition Plan: Patient to discharge home with family support and follow-up plans in place. Kay CARIAS, RN, CM
[2020-12-21] MEDS: Polyethylene Glycol 3350 17 GM PACKET PO (10:06)
[2020-12-21] MEDS: Enoxaparin 80 MG/0.8 ML Syringe 70 MG SC ×2 (10:06→22:10)
--- NOTE | 2020-12-21 16:46 | PCM.PN.HOSP ---
Documented by User: Eugenie Ramey [employer], [employer] 12/21/20 16:51 Subjective Subjective Patient seen and examined. Reduced to 8 L nasal cannula this morning. Remains dyspneic. Denies fever, chills. Denies URI symptoms. Objective Data Objective Data Vital Signs: Vital Signs Temp Pulse Resp BP Pulse Ox 97.9 F 83 37 H 118/67 92 12/21/20 12:00 12/21/20 16:00 12/21/20 16:00 12/21/20 16:00 12/21/20 16:00 Oxygen Flow Rate (L/min) 10 Oxygen Delivery Method Nasal Cannula Weight: 158 lb 15.993 oz Body Mass Index (BMI) 24.0 Intake & Output: Intake and Output for Last 24 Hours 12/19/20 12/20/20 12/21/20 23:59 23:59 23:59 Intake Total 1050 / 1050 1599.5 / 1599.5 Output Total 350 / 1050 1825 / 1825 Balance 700 / 0 -225.5 / -225.5 Medical Nutrition Assessment Dietitian: Nutrition Therapy Diagnosis Start: 12/21/20 09:42 Freq: Status: Active Protocol: Document 12/21/20 10:02 (Rec: 12/21/20 10:02 [id number]) Nutrition Malnutrition Evidence of Malnutrition Exists Yes Malnutrition (severe): Chronic Evidenced By Suboptimal Energy Intake ( Severe),Weight Loss (Severe) Intake Problem Inadequate Oral Intake Etiology r/t decreased appetite w/ increased nutrient needs d/t lung cancer Signs/Symptoms as evidenced by pt reports of chronically reduced appetite over past 5 months, estimated PO intake meeting <75% of pt's nutritional needs x 5 months, estimated PO intake meeting < 50% of pt's nutritional needs over past 3 days Status Active Problem Clinical Problem Chronic Disease or Condition Related Malnutrition Etiology chronic, severe malnutrition r /t inadequate energy intake w/ increased energy needs d/t cancer Signs/Symptoms as evidenced by unintentional wt loss of 21#/11.6% x 5 months, estimated PO intake meeting <75% of pt's nutritional needs x 5 months Status Active Problem Recommendation Dietitian Recommendations/Changes regular diet. Pt currently not agreeable to Ensure or other oral nutrition supplements- he is aware they are available if requested. Pt encouraged to order high protein/nutrient dense foods, kitchen to make smoothies for pt if requested. Lab / Micro Data Result Diagrams: 12/21/20 03:30 12/21/20 03:30 Labs: Laboratory Results - last 24 hr 12/20/20 10:28: B-Natriuretic Peptide 42.8 12/20/20 19:08: COVID-19 ([facility]) Not Detected 12/21/20 03:30: WBC 10.9, RBC 3.43 L, Hgb 10.4 L, Hct 32.5 L, MCV 94.8 H, MCH 30.3, MCHC 32.0, RDW Std Deviation 60.2 H, RDW Coeff of Mathieu 17.3 H, Plt Count 250, MPV 9.0, Immature Gran % (Auto) 0.900, Neut % (Auto) 90.3 H, Lymph % (Auto) 6.0 L, [place] % (Auto) 2.6, Eos % (Auto) 0.0, Baso % (Auto) 0.2, Absolute Neuts (auto) 9.9 H, Absolute Lymphs (auto) 0.65 L, Nucleated RBC % 0 12/21/20 03:30: Sodium 136, Potassium 4.1, Chloride 102, Carbon Dioxide 26.0, Anion Gap 8, BUN 10, Creatinine 0.65 L, Estim Creat Clear Calc 122.37, Est GFR (MDRD) Af Amer 162, Est GFR (MDRD) Non-Af 134, BUN/Creatinine Ratio 15.5, Glucose 104, Calcium 7.4 L Micro: Microbiology 12/20/20 19:08 Mucosa - Nasopharyngeal Respiratory Panel (PCR) - Final Rhinovirus 12/20/20 21:30 Urine, Random Legionella Antigen - Final 12/20/20 21:30 Urine, Random Streptococcus pneumoniae Antigen (M - Final 12/20/20 10:30 Mucosa - Nose SARS-CoV-2 Antigen (Rapid) - Final ABG Data ABG results: ABG 12/20/20 17:40 Specimen Type ART Sample Site R Brach pH 7.47 H Bicarbonate Actual 21.0 L Total CO2 22 Base Excess -3 L O2 Saturation 75 L ABG pCO2 29.0 L ABG pO2 37 L* Primo Test Positive O2 Delivery Device Cannula Liter Flow 6.0 Crit Call To/Read Back Yes Blood Gas Notified Whom Physical Exam Const alert, oriented x3 and no apparent distress Orientation / Consciousness: awake, oriented to person, oriented to place and oriented to time HEENT normocephalic and moist oral mucous membranes Eyes PERRL, EOMs intact bilaterally and conjunctivae normal Neck no lymphadenopathy Resp Resp Narrative: Tachypneic, right-sided crackles, diminished lung sounds Cardio regular rate, regular rhythm and no murmurs Peripheral Pulses: pulses 2+ throughout GI normal to inspection, nondistended, normoactive bowel sounds, non-tender and non-distended Extremity normal to inspection Skin no rashes or lesions noted Lesions: no lesions Rashes: no rashes Trauma: no lacerations or abrasions Neuro CN's II-XII intact bilaterally, no focal motor deficits, no sensory deficits noted and deep tendon reflexes 2+ bilaterally Psych mental status grossly normal and affect normal Assessment & Plan Assessment/Plan (1) Acute hypoxemic respiratory failure: (2) Pulmonary embolism: (3) Rhinovirus infection: (4) COPD exacerbation: PLAN: 1. Acute hypoxic respiratory insufficiency secondary to acute PE, acute rhinovirus, suspected COPD exacerbation and suspected post viral pneumonia-CTA of chest shows pulmonary embolism involving the branches of the left upper lobe pulmonary artery. Therapeutic Lovenox. Continue supplement oxygen to maintain O2 at or above 90%. IV Solu-Medrol. IV antibiotics pending blood cultures and sputum culture. Respiratory panel positive for rhinovirus. 2. 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 Durand. 3. Former tobacco use-quit 3 years ago. Encouraged continued cessation. DVT prophylaxis-Lovenox subcu This patient was seen by KATHLEEN Aviles under the supervision of Dr. Cameron. Documented by User: Dr. Serafin Cameron DO 12/21/20 17:54 Objective Data Lab / Micro Data Result Diagrams: 12/21/20 03:30 12/21/20 03:30 Charges/Coding Addendum Addendum: Patient was seen and examined independently of Eugenie Ramey today, he remains on high flow oxygen at this time but does not complain of any chest pain, chills, or fever. Critical care feels that the patient had high acute hypoxic respiratory failure secondary to pulmonary embolism and suspected COPD exacerbation secondary to rhinovirus. I talked at length with his oncologist last night by phone when he was transferred into the ICU. On examination he appeared in good health and spirits. Vital signs as documented. Skin warm and dry and without overt rashes. Neck without JVD, neck was supple, trachea midline, thyroid was normal. Patient had a hoarseness to his voice. Lungs-inspiratory rales were noted most prominently over the patient's right lung field but also scattered over the left lung field, normal air movement was noted. Heart exam notable for regular rhythm, normal sounds and absence of murmurs, rubs or gallops. Abdomen unremarkable and without evidence of organomegaly, masses, or abdominal aortic enlargement. Bowel sounds are present, abdomen is not distended. Extremities nonedematous, no cyanosis was noted, no clubbing was noted. Neuro: Cranial nerves II through XII are grossly intact, no focal motor deficits were noted, sensation to light touch and pinprick intact, motor exam 5/5 throughout. Psych: Patient is alert and oriented x3, he does not appear anxious or depressed, he does not appear agitated. According to critical care, they advised the patient remain on antibiotics for the time being until final cultures come back. Patient was negative for COVID-19 via PCR. I have reviewed Eugenie Ramey's progress note including her medical assessment and plan of care and endorse it. Visit Charges Inpatient E&M: 91618 Subs Hosp L2
[2020-12-21] MEDS: Ergocalciferol 1.25 MG (50, 000 UNIT) Capsule PO (21:39)
[2020-12-21] MEDS: 0.9% Saline Lock 10 ML Syringe IV (21:39)
[2020-12-21] MEDS: traZODone 50 MG Tablet PO (21:42)
[2020-12-22] VITALS (30 sets, daily range): BP systolic 95–135; BP diastolic 42–75; PULSE 64–99; RESP 15–31; TEMP 36.3–36.9; O2SAT 88–98
[2020-12-22 03:54] LABS: Absolute Lymphocyte Count 0.51 X10^3/uL (0.83-4.51); Basophil# 0.01 X10^3/uL; Basophil% 0.1 % (0-1); Hematocrit 31.4 % (40-54); Lymphocyte # 0.51 X10^3/ul (0.83-4.51); Lymphocyte % 4.7 % (19-41); Mean Corp Hgb Conc 31.8 g/dL (32-36); Mean Corpuscular Volume 94.3 fL (80-94); Monocyte# 0.29 X10^3/uL; Monocyte% 2.7 % (0-10); NRBC Flagged by Analyzer 0 % (0-5); Neutrophil # 9.96 X10^3/uL (2.7-7.7); Neutrophil % 91.9 % (47-70); POSITIVE DIFFERENTIAL YES; Platelet Count 251 K/mm3 (150-450); RBC Distribution Width CV 17.1 % (11.6-14.6); RBC Distribution Width SD 58.8 fl (35.1-43.9); Red Blood Count 3.33 M/mm3 (4.6-6.2); White Blood Count 10.8 K/mm3 (4.4-11.0)
[2020-12-22 04:01] LABS: Differential Indicated SCAN CRITERIA MET
[2020-12-22 04:04] LABS: Anion Gap 8 (5-15); BUN 12 mg/dL (7-18); BUN/Creat Ratio 21.3 RATIO (10-20); Chloride 100 mmol/L (98-107); Creatinine, Serum 0.56 mg/dL (0.70-1.30); EST Glomerular Filtration Rate 157 mL/min (>60); Est Glom Filt Rate - Afr Amer 191 mL/min (>60); Estimated Creatinine Clearance 142.03 ml/min; Glucose 152 mg/dL (74-106); Potassium 4.2 mmol/L (3.5-5.1); Sodium Level 134 mmol/L (136-145)
[2020-12-22 04:23] LABS: Differential Comment SCANNED
[2020-12-22] MEDS: CHLORHEXIDINE GLUC 2% CLOTH 1 EACH TOWELETTE TOPICAL (05:43)
--- NOTE | 2020-12-22 06:45 | PN.CC_ITS ---
Assessment & Plan Assessment/Plan (1) Acute hypoxemic respiratory failure: (2) Pulmonary embolism: (3) Rhinovirus infection: (4) COPD exacerbation: PLAN: RECOMMENDATIONS: 1. Continue Solu-Medrol and therapeutic Lovenox at current dosing 2. Possibly discontinue antibiotics at 48 hours of culture negative 3. Increase activity as tolerated 4. Minimize IV fluids. Okay to take p.o. 5. Potentially transfer from the intensive care unit later today pending respiratory status IMPRESSIONS: 1. Acute hypoxic respiratory failure secondary to pulmonary embolism and suspected COPD exacerbation secondary to rhinovirus Patient with multiple etiologies of acute hypoxic respiratory failure. 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 Patient is appropriately on Lovenox therapy. Patient has tested positive for rhinovirus and has emphysematous changes noted on CT scan. Clinical suspicion for an acute COPD exacerbation secondary to rhinovirus, but PFTs to confirm COPD have not been done. This can be completed as an outpatient. We will hold on diuresis for now. Continue Solu-Medrol and Lovenox at therapeutic dosing. Wean oxygen as tolerated. 2. 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 Patient does state that he would want to be a full code at this time, but wants to check with his . Given malignancy, Lovenox is likely the anticoagulation of choice. Subjective Subjective The patient did relatively well overnight, but reports no subjective improvement in overall condition. Patient was able to be transitioned from Airvo to high flow nasal cannula. However, patient desaturates quickly with minimal movement. Patient is still not having much of a productive cough. Patient denies any nausea or vomiting. Objective Data Objective Data Vital Signs: Vital Signs Temp Pulse Resp BP Pulse Ox 36.4 C L 89 18 133/67 H 92 12/22/20 04:00 12/22/20 06:00 12/22/20 06:00 12/22/20 06:00 12/22/20 06:00 Oxygen Flow Rate (L/min) 10 Oxygen Delivery Method Nasal Cannula Weight: 71.078 kg Body Mass Index (BMI) 24.0 Intake & Output: Intake and Output for Last 24 Hours 12/20/20 12/21/20 12/22/20 23:59 23:59 23:59 Intake Total 1050 / 1050 1823.25 / 1823.25 106.00 / 106.00 Output Total 350 / 1050 2625 / 2825 650 / 650 Balance 700 / 0 -801.75 / -1001.75 -544.00 / -544.00 Medical Nutrition Assessment Dietitian: Nutrition Therapy Diagnosis Start: 12/21/20 09:42 Freq: Status: Active Protocol: Document 12/21/20 10:02 (Rec: 12/21/20 10:02 [id number]) Nutrition Malnutrition Evidence of Malnutrition Exists Yes Malnutrition (severe): Chronic Evidenced By Suboptimal Energy Intake ( Severe),Weight Loss (Severe) Intake Problem Inadequate Oral Intake Etiology r/t decreased appetite w/ increased nutrient needs d/t lung cancer Signs/Symptoms as evidenced by pt reports of chronically reduced appetite over past 5 months, estimated PO intake meeting <75% of pt's nutritional needs x 5 months, estimated PO intake meeting < 50% of pt's nutritional needs over past 3 days Status Active Problem Clinical Problem Chronic Disease or Condition Related Malnutrition Etiology chronic, severe malnutrition r /t inadequate energy intake w/ increased energy needs d/t cancer Signs/Symptoms as evidenced by unintentional wt loss of 21#/11.6% x 5 months, estimated PO intake meeting <75% of pt's nutritional needs x 5 months Status Active Problem Recommendation Dietitian Recommendations/Changes regular diet. Pt currently not agreeable to Ensure or other oral nutrition supplements- he is aware they are available if requested. Pt encouraged to order high protein/nutrient dense foods, kitchen to make smoothies for pt if requested. Lab / Micro Data Result Diagrams: 12/22/20 03:30 12/22/20 03:30 Labs: Laboratory Results - last 24 hr 12/22/20 03:30: WBC 10.8, RBC 3.33 L, Hgb 10.0 L, Hct 31.4 L, MCV 94.3 H, MCH 30.0, MCHC 31.8 L, RDW Std Deviation 58.8 H, RDW Coeff of Mathieu 17.1 H, Plt Count 251, MPV 9.0, Immature Gran % (Auto) 0.600, Neut % (Auto) 91.9 H, Lymph % (Auto) 4.7 L, [place] % (Auto) 2.7, Eos % (Auto) 0.0, Baso % (Auto) 0.1, Absolute Neuts (auto) 10.0 H, Absolute Lymphs (auto) 0.51 L, Nucleated RBC % 0, Differential Comment SCANNED 12/22/20 03:30: Sodium 134 L, Potassium 4.2, Chloride 100, Carbon Dioxide 26.0, Anion Gap 8, BUN 12, Creatinine 0.56 L, Estim Creat Clear Calc 142.03, Est GFR (MDRD) Af Amer 191, Est GFR (MDRD) Non-Af 157, BUN/Creatinine Ratio 21.3 H, Glucose 152 H, Calcium 8.0 L Micro: Microbiology 12/20/20 19:08 Mucosa - Nasopharyngeal Respiratory Panel (PCR) - Final Rhinovirus 12/20/20 21:30 Urine, Random Legionella Antigen - Final 12/20/20 21:30 Urine, Random Streptococcus pneumoniae Antigen (M - Final 12/20/20 10:30 Mucosa - Nose SARS-CoV-2 Antigen (Rapid) - Final Physical Exam Const alert and oriented x3 General Appearance: cooperative and well developed HEENT normocephalic, head/scalp atraumatic and moist oral mucous membranes Eyes PERRL and EOMs intact bilaterally Neck full ROM and no lymphadenopathy Chest inspection of chest normal Resp Resp Narrative: Mild conversational dyspnea despite high flow nasal cannula Effort and Inspection: able to speak in complete sentences and prolonged expiratory phase Auscultation: diminished lung sounds; Negative for rales, rhonchi or wheezes Percussion: Negative for dullness Cardio regular rate, regular rhythm, S1 normal heart sound, S2 normal heart sound, no murmurs, no rub and no gallops GI normal to inspection, nondistended, normoactive bowel sounds no CVA tenderness Extremity no clubbing, cyanosis or edema Skin no rashes or lesions noted Neuro oriented x3, CN's II-XII intact bilaterally, moves all extremities and no focal motor deficits Psych cooperative and affect normal Charges/Coding Visit Charges Inpatient E&M: 11857 Subs Hosp L3
--- NOTE | 2020-12-22 07:20 | PCM.PN.HOSP ---
Subjective Subjective Patient is still on 10 L of oxygen. Blood pressure in normal range. Patient not on home oxygen prior to this episode. History of small cell cancer with metastasis. He is under chemotherapy with last treatment on December 02. Former smoker quit 3 years ago. Objective Data Objective Data Vital Signs: Vital Signs Temp Pulse Resp BP Pulse Ox 97.5 F L 64 19 H 128/66 H 94 12/22/20 04:00 12/22/20 07:00 12/22/20 07:00 12/22/20 07:00 12/22/20 07:00 Oxygen Flow Rate (L/min) 10 Oxygen Delivery Method Nasal Cannula Weight: 156 lb 11.2 oz Body Mass Index (BMI) 24.0 Intake & Output: Intake and Output for Last 24 Hours 12/20/20 12/21/20 12/22/20 23:59 23:59 23:59 Intake Total 1050 / 1050 1823.25 / 1823.25 106.00 / 106.00 Output Total 350 / 1050 2625 / 2825 650 / 650 Balance 700 / 0 -801.75 / -1001.75 -544.00 / -544.00 Medical Nutrition Assessment Dietitian: Nutrition Therapy Diagnosis Start: 12/21/20 09:42 Freq: Status: Active Protocol: Document 12/21/20 10:02 (Rec: 12/21/20 10:02 [id number]) Nutrition Malnutrition Evidence of Malnutrition Exists Yes Malnutrition (severe): Chronic Evidenced By Suboptimal Energy Intake ( Severe),Weight Loss (Severe) Intake Problem Inadequate Oral Intake Etiology r/t decreased appetite w/ increased nutrient needs d/t lung cancer Signs/Symptoms as evidenced by pt reports of chronically reduced appetite over past 5 months, estimated PO intake meeting <75% of pt's nutritional needs x 5 months, estimated PO intake meeting < 50% of pt's nutritional needs over past 3 days Status Active Problem Clinical Problem Chronic Disease or Condition Related Malnutrition Etiology chronic, severe malnutrition r /t inadequate energy intake w/ increased energy needs d/t cancer Signs/Symptoms as evidenced by unintentional wt loss of 21#/11.6% x 5 months, estimated PO intake meeting <75% of pt's nutritional needs x 5 months Status Active Problem Recommendation Dietitian Recommendations/Changes regular diet. Pt currently not agreeable to Ensure or other oral nutrition supplements- he is aware they are available if requested. Pt encouraged to order high protein/nutrient dense foods, kitchen to make smoothies for pt if requested. Lab / Micro Data Result Diagrams: 12/22/20 03:30 12/22/20 03:30 Labs: Laboratory Results - last 24 hr 12/22/20 03:30: WBC 10.8, RBC 3.33 L, Hgb 10.0 L, Hct 31.4 L, MCV 94.3 H, MCH 30.0, MCHC 31.8 L, RDW Std Deviation 58.8 H, RDW Coeff of Mathieu 17.1 H, Plt Count 251, MPV 9.0, Immature Gran % (Auto) 0.600, Neut % (Auto) 91.9 H, Lymph % (Auto) 4.7 L, [place] % (Auto) 2.7, Eos % (Auto) 0.0, Baso % (Auto) 0.1, Absolute Neuts (auto) 10.0 H, Absolute Lymphs (auto) 0.51 L, Nucleated RBC % 0, Differential Comment SCANNED 12/22/20 03:30: Sodium 134 L, Potassium 4.2, Chloride 100, Carbon Dioxide 26.0, Anion Gap 8, BUN 12, Creatinine 0.56 L, Estim Creat Clear Calc 142.03, Est GFR (MDRD) Af Amer 191, Est GFR (MDRD) Non-Af 157, BUN/Creatinine Ratio 21.3 H, Glucose 152 H, Calcium 8.0 L Micro: Microbiology 12/20/20 19:08 Mucosa - Nasopharyngeal Respiratory Panel (PCR) - Final Rhinovirus 12/20/20 21:30 Urine, Random Legionella Antigen - Final 12/20/20 21:30 Urine, Random Streptococcus pneumoniae Antigen (M - Final 12/20/20 10:30 Mucosa - Nose SARS-CoV-2 Antigen (Rapid) - Final Physical Exam Narrative Physical exam General: Alert, Oriented x3, Cooperative, BMI 23.1 kg/m? HEENT: Atraumatic, PERRLA, EOMI, Normocephalic Oral: No Gingival or Mucosal Lesions/ Ulcerations Neck: Supple, No JVD, Negative Carotid Bruits Lungs: Air entry severely diminished in bilateral lung bases. Expiratory phase prolonged. Severe hypoxia. Dyspnea on exertion Cardiovascular: Sinus rhythm, heart rate in 90s normal S1, Normal S2, No murmurs Abdomen: Bowel Sounds Present, Soft, Non Tender, Non-Distended : No renal angle tenderness. No suprapubic tenderness. Extremities: No edema, Capillary Refill Less than 3 Seconds Skin: No rashes, No breakdown Musculoskeletal: No Tenderness to Palpation of Joints or Extremities Neurological: Cranial nerves II-XII grossly intact, Deep Tendon Reflexes 2+/4 and Symmetrical, Neuro grossly intact Psych/Mental Status: Normal Affect, Appropriate. Assessment & Plan Assessment/Plan (1) Pulmonary embolism: (2) Rhinovirus infection: (3) Acute hypoxemic respiratory failure: (4) COPD exacerbation: PLAN: This is a 60-year-old gentleman admitted with shortness of breath and hypoxia and on assessment found to be acute hypoxic respiratory failure. 1. Acute hypoxic respiratory insufficiency secondary to acute pulmonary embolism, suspected COPD exacerbation secondary to rhinovirus: Patient is still on 10 L of oxygen through nasal cannula. CTA of chest shows pulmonary embolism involving the branches of the left upper lobe pulmonary artery. On therapeutic Lovenox. Continue supplement oxygen to maintain O2 at or above 90%. 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 On bronchodilator, IV Solu-Medrol. IV antibiotics, Zosyn pending blood cultures and sputum culture. Respiratory panel positive for rhinovirus. PFT as an outpatient. 2. 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 Durand. Patient on chemotherapy. 3. 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 Former tobacco use-quit 3 years ago. Encouraged continued cessation. DVT prophylaxis-Lovenox subcu Total time of the visit including total time spent in counseling or coordination of care, (more than 50% of the total time, spent in obtaining medical information from nurses and other ancillary care providers,explaining to the patient about labs, imaging, diagnosis and management), , review of labs and imaging is 30 minutes. Microbiology Past 72 Hours 12/20/20 19:08 Mucosa - Nasopharyngeal Respiratory Panel (PCR) - Final Rhinovirus 12/20/20 21:30 Urine, Random Legionella Antigen - Final 12/20/20 21:30 Urine, Random Streptococcus pneumoniae Antigen (M - Final 12/20/20 10:30 Mucosa - Nose SARS-CoV-2 Antigen (Rapid) - Final Laboratory Results 12/22/20 03:30: WBC 10.8, RBC 3.33 L, Hgb 10.0 L, Hct 31.4 L, MCV 94.3 H, MCH 30.0, MCHC 31.8 L, RDW Std Deviation 58.8 H, RDW Coeff of Mathieu 17.1 H, Plt Count 251, MPV 9.0, Immature Gran % (Auto) 0.600, Neut % (Auto) 91.9 H, Lymph % (Auto) 4.7 L, [place] % (Auto) 2.7, Eos % (Auto) 0.0, Baso % (Auto) 0.1, Absolute Neuts (auto) 10.0 H, Absolute Lymphs (auto) 0.51 L, Nucleated RBC % 0, Differential Comment SCANNED 12/22/20 03:30: Sodium 134 L, Potassium 4.2, Chloride 100, Carbon Dioxide 26.0, Anion Gap 8, BUN 12, Creatinine 0.56 L, Estim Creat Clear Calc 142.03, Est GFR (MDRD) Af Amer 191, Est GFR (MDRD) Non-Af 157, BUN/Creatinine Ratio 21.3 H, Glucose 152 H, Calcium 8.0 L Clinical Impression(s) from Imaging Studies Chest CTA 12/20/20 11:00 IMPRESSION: Pulmonary embolism involving the branches of the left upper lobe pulmonary artery. Mediastinal and hilar lymphadenopathy as well as a mass in the anterior superior aspect of the mediastinum as described. Spiculated nodule in the left upper lobe. Diffuse groundglass appearance with the scarring worse in the right hemithorax. Liver metastasis. Retroperitoneal lymphadenopathy. Charges/Coding Visit Charges Inpatient E&M: 25505 Subs Hosp L3
[2020-12-22] MEDS: Ipratropium/Albuterol Sulfate 3 ML AMPUL.NEB INHALATION ×5 (07:27→22:24)
[2020-12-22] MEDS: morphine SR 15 MG Tablet PO ×2 (08:03→20:56)
[2020-12-22] MEDS: Enoxaparin 80 MG/0.8 ML Syringe 70 MG SC ×2 (09:44→22:42)
[2020-12-22] MEDS: Polyethylene Glycol 3350 17 GM PACKET PO (09:44)
--- NOTE | 2020-12-22 10:46 | CASEMGMT ---
Social Work SW met with pt in room and introduced self and role of SW. Pt is A &O x3 and willing to speak with SW. Pt presenting with recent cancer diagnosis. Pt talked openly about diagnosis and changes to life. Pt has , three children and nine grandchildren and states his family is close and pt is appreciative of their support. Pt denies needs at this time and indicates he is coping appropriately. SW spoke with pt regarding HCPOA and LW. Pt is appreciative of information but would like to have time to think about options and speak with his prior to completing documents. Documents and SW Rack card left with pt and pt aware SW can assist with completing documents while inpatient or at an outpatient appointment. SW to remain available should further needs arise. DEVEN Wood
[2020-12-22] MEDS: Ondansetron 8 MG Tablet PO ×2 (14:32→22:33)
[2020-12-22] MEDS: HYDROmorphone 2 MG TABLET PO (17:40)
[2020-12-22] MEDS: traZODone 50 MG Tablet PO (22:33)
[2020-12-23] VITALS (29 sets, daily range): BP systolic 94–163; BP diastolic 43–94; PULSE 70–102; RESP 14–28; TEMP 36.4–36.9; O2SAT 90–98
[2020-12-23] MEDS: Ipratropium/Albuterol Sulfate 3 ML AMPUL.NEB INHALATION ×5 (03:32→18:50)
[2020-12-23 05:00] LABS: Absolute Lymphocyte Count 0.55 X10^3/uL (0.83-4.51); Absolute Neutrophil Count 14.8 X10^3/uL (2.0-7.7); Basophil# 0.01 X10^3/uL; Basophil% 0.1 % (0-1); Hematocrit 30.7 % (40-54); Hemoglobin 10.1 g/dL (13.0-16.5); Lymphocyte # 0.55 X10^3/ul (0.83-4.51); Lymphocyte % 3.4 % (19-41); Mean Corp Hgb Conc 32.9 g/dL (32-36); Mean Corpuscular Volume 94.2 fL (80-94); Mean Platelet Vol. 8.8 fl (6.2-12.0); Monocyte# 0.64 X10^3/uL; NRBC Flagged by Analyzer 0 % (0-5); Neutrophil # 14.76 X10^3/uL (2.7-7.7); POSITIVE DIFFERENTIAL YES; Platelet Count 261 K/mm3 (150-450); RBC Distribution Width CV 17.2 % (11.6-14.6); RBC Distribution Width SD 59.2 fl (35.1-43.9); Red Blood Count 3.26 M/mm3 (4.6-6.2)
[2020-12-23 05:06] LABS: Differential Indicated SCAN CRITERIA MET
[2020-12-23] MEDS: proMETHazine 25 MG Tablet PO ×2 (05:19→18:28)
[2020-12-23 05:20] LABS: ALB/GLOB Ratio 0.8 RATIO (0.9-2.4); AST(SGOT) 63 U/L (15-37); Alanine Aminotransfer ALT/SGPT 56 U/L (16-61); Albumin, Serum 2.8 g/dL (3.2-5.0); Alkaline Phosphatase 128 U/L (45-117); Anion Gap 8 (5-15); BUN 15 mg/dL (7-18); Chloride 100 mmol/L (98-107); Creatinine, Serum 0.68 mg/dL (0.70-1.30); EST Glomerular Filtration Rate 126 mL/min (>60); Est Glom Filt Rate - Afr Amer 153 mL/min (>60); Estimated Creatinine Clearance 116.97 ml/min; Globulin 3.7 g/dL (2.2-4.2); Glucose 138 mg/dL (74-106); Potassium 3.9 mmol/L (3.5-5.1); Protein, Total 6.5 g/dL (6.4-8.2); Sodium Level 135 mmol/L (136-145)
[2020-12-23 05:30] LABS: Differential Comment SCANNED
--- NOTE | 2020-12-23 07:05 | PCM.PN.INT ---
Assessment & Plan Assessment/Plan (1) Acute hypoxemic respiratory failure: (2) Pulmonary embolism: (3) Rhinovirus infection: (4) COPD exacerbation: PLAN: RECOMMENDATIONS: 1. Continue Solu-Medrol and therapeutic Lovenox at current dosing 2. Possibly wean Solu-Medrol tomorrow pending respiratory status 3. Increase activity as tolerated 4. Minimize IV fluids. Okay to take p.o. 5. Okay to transfer from the intensive care unit later today pending respiratory status IMPRESSIONS: 1. Acute hypoxic respiratory failure secondary to pulmonary embolism and suspected COPD exacerbation secondary to rhinovirus Patient with multiple etiologies of acute hypoxic respiratory failure. 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 Patient is appropriately on Lovenox therapy. Patient has tested positive for rhinovirus and has emphysematous changes noted on CT scan. Clinical suspicion for an acute COPD exacerbation secondary to rhinovirus, but PFTs to confirm COPD have not been done. This can be completed as an outpatient. We will hold on diuresis for now. Continue Solu-Medrol and Lovenox at therapeutic dosing. Wean oxygen as tolerated. Clinical suspicion that most of the effect of PE is gone and remaining hypoxia is secondary to COPD exacerbation secondary to rhinovirus. This will be slower to respond to therapy given patient is not on maintenance inhalers at baseline. 2. 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 Patient does state that he would want to be a full code at this time, but wants to check with his . Given malignancy, Lovenox is likely the anticoagulation of choice. 3. Abdominal pain Unclear etiology. Patient does have a slight elevation of his alkaline phosphatase. We will likely recheck this tomorrow. Patient is not reporting a temporal relationship with food, but cholecystitis would be a concern, along with metastatic disease. Subjective Subjective Patient did okay overnight from a hemodynamic standpoint. Patient has been tolerating 9 L nasal cannula to maintain saturations. Patient has had an abdominal discomfort described as pain versus nausea. This has not been responsive to Zofran, but some improvement reported with Phenergan. Objective Data Objective Data Vital Signs: Vital Signs Temp Pulse Resp BP Pulse Ox 36.6 C 88 19 H 147/67 H 93 12/23/20 00:00 12/23/20 06:00 12/23/20 06:00 12/23/20 06:00 12/23/20 06:00 Oxygen Flow Rate (L/min) 9 Oxygen Delivery Method Nasal Cannula Weight: 71.1 kg Body Mass Index (BMI) 24.0 Intake & Output: Intake and Output for Last 24 Hours 12/21/20 12/22/20 12/23/20 23:59 23:59 23:59 Intake Total 1823.25 / 1823.25 244.50 / 259.50 65 / 65 Output Total 2625 / 2825 1450 / 1450 250 / 250 Balance -801.75 / -1001.75 -1205.50 / -1190.50 -185 / -185 Medical Nutrition Assessment Dietitian: Nutrition Therapy Diagnosis Start: 12/21/20 09:42 Freq: Status: Active Protocol: Document 12/21/20 10:02 (Rec: 12/21/20 10:02 [id number]) Nutrition Malnutrition Evidence of Malnutrition Exists Yes Malnutrition (severe): Chronic Evidenced By Suboptimal Energy Intake ( Severe),Weight Loss (Severe) Intake Problem Inadequate Oral Intake Etiology r/t decreased appetite w/ increased nutrient needs d/t lung cancer Signs/Symptoms as evidenced by pt reports of chronically reduced appetite over past 5 months, estimated PO intake meeting <75% of pt's nutritional needs x 5 months, estimated PO intake meeting < 50% of pt's nutritional needs over past 3 days Status Active Problem Clinical Problem Chronic Disease or Condition Related Malnutrition Etiology chronic, severe malnutrition r /t inadequate energy intake w/ increased energy needs d/t cancer Signs/Symptoms as evidenced by unintentional wt loss of 21#/11.6% x 5 months, estimated PO intake meeting <75% of pt's nutritional needs x 5 months Status Active Problem Recommendation Dietitian Recommendations/Changes regular diet. Pt currently not agreeable to Ensure or other oral nutrition supplements- he is aware they are available if requested. Pt encouraged to order high protein/nutrient dense foods, kitchen to make smoothies for pt if requested. Lab / Micro Data Result Diagrams: 12/23/20 04:50 12/23/20 04:50 Labs: Laboratory Results - last 24 hr 12/23/20 04:50: WBC 16.0 H, RBC 3.26 L, Hgb 10.1 L, Hct 30.7 L, MCV 94.2 H, MCH 31.0, MCHC 32.9, RDW Std Deviation 59.2 H, RDW Coeff of Mathieu 17.2 H, Plt Count 261, MPV 8.8, Immature Gran % (Auto) 0.500, Neut % (Auto) 92.0 H, Lymph % (Auto) 3.4 L, [place] % (Auto) 4.0, Eos % (Auto) 0.0, Baso % (Auto) 0.1, Absolute Neuts (auto) 14.8 H, Absolute Lymphs (auto) 0.55 L, Nucleated RBC % 0, Differential Comment SCANNED 12/23/20 04:50: Sodium 135 L, Potassium 3.9, Chloride 100, Carbon Dioxide 27.0, Anion Gap 8, BUN 15, Creatinine 0.68 L, Estim Creat Clear Calc 116.97, Est GFR (MDRD) Af Amer 153, Est GFR (MDRD) Non-Af 126, BUN/Creatinine Ratio 22.0 H, Glucose 138 H, Calcium 8.0 L, Total Bilirubin 0.40, AST 63 H, ALT 56, Alkaline Phosphatase 128 H, Total Protein 6.5, Albumin 2.8 L, Globulin 3.7, Albumin/Globulin Ratio 0.8 L Micro: Microbiology 12/20/20 10:39 Blood Culture (Wb) - Right Forearm Blood Culture - Preliminary No growth in 48 hours. 12/20/20 10:28 Blood Culture (Wb) - Left Forearm Blood Culture - Preliminary No growth in 48 hours. 12/20/20 19:08 Mucosa - Nasopharyngeal Respiratory Panel (PCR) - Final Rhinovirus 12/20/20 21:30 Urine, Random Legionella Antigen - Final 12/20/20 21:30 Urine, Random Streptococcus pneumoniae Antigen (M - Final 12/20/20 10:30 Mucosa - Nose SARS-CoV-2 Antigen (Rapid) - Final Physical Exam Const alert and oriented x3 General Appearance: cooperative and well developed HEENT normocephalic, head/scalp atraumatic and moist oral mucous membranes Eyes PERRL and EOMs intact bilaterally Neck full ROM and no lymphadenopathy Chest inspection of chest normal Resp Resp Narrative: Mild conversational dyspnea despite high flow nasal cannula Effort and Inspection: able to speak in complete sentences and prolonged expiratory phase Auscultation: diminished lung sounds; Negative for rales, rhonchi or wheezes Percussion: Negative for dullness Cardio regular rate, regular rhythm, S1 normal heart sound, S2 normal heart sound, no murmurs, no rub and no gallops GI normal to inspection, nondistended, normoactive bowel sounds no CVA tenderness Extremity no clubbing, cyanosis or edema Skin no rashes or lesions noted Neuro oriented x3, CN's II-XII intact bilaterally, moves all extremities and no focal motor deficits Psych cooperative and affect normal Charges/Coding Visit Charges Inpatient E&M: 23269 Subs Hosp L3
--- NOTE | 2020-12-23 08:44 | RAD_ITS ---
STUDY: X-RAY - ACUTE ABDOMINAL SERIES REASON FOR EXAM: Male, 60 years old. N/V . Pulmonary embolism and hypoxia. TECHNIQUE: Single view of the chest. Supine, and erect view(s) of the abdomen were obtained. COMPARISON: None. FINDINGS: Patchy bibasilar infiltrates. Normal size heart. Normal mediastinum and yarely. Normal visualized pulmonary arteries. Normal visualized aortic arch and descending thoracic aorta. There is a non-specific bowel gas pattern. The soft tissue structures of the abdomen and pelvis are unremarkable. There are diffuse degenerative changes of the visualized lumbar spine. RAD/Acute Abdomen Inc Chest IMPRESSION: Nonspecific bowel gas pattern. Electronically Signed: Keny Dickey MD at 12:07 EDT , Service support ,
[2020-12-23] MEDS: fentaNYL 100 MCG/2 ML Ampul 50 MCG IV ×3 (09:57→21:00)
[2020-12-23] MEDS: CHLORHEXIDINE GLUC 2% CLOTH 1 EACH TOWELETTE TOPICAL (09:57)
[2020-12-23] MEDS: Enoxaparin 80 MG/0.8 ML Syringe 70 MG SC ×2 (09:58→21:03)
[2020-12-23] MEDS: 0.9% Saline Lock 10 ML Syringe IV ×3 (10:02→21:00)
[2020-12-23] MEDS: Ondansetron 4 MG/2 ML Vial IV ×2 (10:02→16:47)
--- NOTE | 2020-12-23 11:00 | PCM.PN.HOSP ---
Subjective Subjective Patient having nausea no vomiting to 3 times, gastric type. Patient also complaining of abdominal pain, cramps. Objective Data Objective Data Vital Signs: Vital Signs Temp Pulse Resp BP Pulse Ox 98.0 F 99 19 H 122/94 H 96 12/23/20 08:00 12/23/20 10:00 12/23/20 10:00 12/23/20 10:00 12/23/20 10:00 Oxygen Flow Rate (L/min) 8 Oxygen Delivery Method Nasal Cannula Weight: 156 lb 11.979 oz Body Mass Index (BMI) 24.0 Intake & Output: Intake and Output for Last 24 Hours 12/21/20 12/22/20 12/23/20 23:59 23:59 23:59 Intake Total 1823.25 / 1823.25 244.50 / 259.50 247.75 / 247.75 Output Total 2625 / 2825 1450 / 1450 625 / 625 Balance -801.75 / -1001.75 -1205.50 / -1190.50 -377.25 / -377.25 Medical Nutrition Assessment Dietitian: Nutrition Therapy Diagnosis Start: 12/21/20 09:42 Freq: Status: Active Protocol: Document 12/23/20 09:58 SLA (Rec: 12/23/20 09:59 SLA [id number]) Nutrition Malnutrition Evidence of Malnutrition Exists Yes Malnutrition (severe): Chronic Evidenced By Suboptimal Energy Intake ( Severe),Weight Loss (Severe) Intake Problem Inadequate Oral Intake Etiology r/t decreased appetite w/ increased nutrient needs d/t lung cancer Signs/Symptoms as evidenced by pt reports of chronically reduced appetite over past 5 months, estimated PO intake meeting <75% of pt's nutritional needs x 5 months, estimated PO intake meeting < 50% of pt's nutritional needs over past 4 days Status Active Problem Clinical Problem Chronic Disease or Condition Related Malnutrition Etiology chronic, severe malnutrition r /t inadequate energy intake w/ increased energy needs d/t cancer Signs/Symptoms as evidenced by unintentional wt loss of 21#/11.6% x 5 months, estimated PO intake meeting <75% of pt's nutritional needs x 5 months Status Active Problem Recommendation Dietitian Recommendations/Changes Regular diet. Pt currently not agreeable to Ensure or other oral nutrition supplements- he is aware they are available if requested. Pt encouraged to order high protein/nutrient dense foods, kitchen to make smoothies for pt if requested. Lab / Micro Data Result Diagrams: 12/23/20 04:50 12/23/20 04:50 Labs: Laboratory Results - last 24 hr 12/23/20 04:50: WBC 16.0 H, RBC 3.26 L, Hgb 10.1 L, Hct 30.7 L, MCV 94.2 H, MCH 31.0, MCHC 32.9, RDW Std Deviation 59.2 H, RDW Coeff of Mathieu 17.2 H, Plt Count 261, MPV 8.8, Immature Gran % (Auto) 0.500, Neut % (Auto) 92.0 H, Lymph % (Auto) 3.4 L, [place] % (Auto) 4.0, Eos % (Auto) 0.0, Baso % (Auto) 0.1, Absolute Neuts (auto) 14.8 H, Absolute Lymphs (auto) 0.55 L, Nucleated RBC % 0, Differential Comment SCANNED 12/23/20 04:50: Sodium 135 L, Potassium 3.9, Chloride 100, Carbon Dioxide 27.0, Anion Gap 8, BUN 15, Creatinine 0.68 L, Estim Creat Clear Calc 116.97, Est GFR (MDRD) Af Amer 153, Est GFR (MDRD) Non-Af 126, BUN/Creatinine Ratio 22.0 H, Glucose 138 H, Calcium 8.0 L, Total Bilirubin 0.40, AST 63 H, ALT 56, Alkaline Phosphatase 128 H, Total Protein 6.5, Albumin 2.8 L, Globulin 3.7, Albumin/Globulin Ratio 0.8 L Micro: Microbiology 12/20/20 10:39 Blood Culture (Wb) - Right Forearm Blood Culture - Preliminary No growth in 48 hours. 12/20/20 10:28 Blood Culture (Wb) - Left Forearm Blood Culture - Preliminary No growth in 48 hours. 12/20/20 19:08 Mucosa - Nasopharyngeal Respiratory Panel (PCR) - Final Rhinovirus 12/20/20 21:30 Urine, Random Legionella Antigen - Final 12/20/20 21:30 Urine, Random Streptococcus pneumoniae Antigen (M - Final 12/20/20 10:30 Mucosa - Nose SARS-CoV-2 Antigen (Rapid) - Final Physical Exam Narrative Physical exam General: Alert, Oriented x3, Cooperative, BMI 23.1 kg/m? HEENT: Atraumatic, PERRLA, EOMI, Normocephalic Oral: No Gingival or Mucosal Lesions/ Ulcerations Neck: Supple, No JVD, Negative Carotid Bruits Lungs: Air entry severely diminished in bilateral lung bases. Expiratory phase prolonged. Severe hypoxia. Dyspnea on exertion Cardiovascular: Sinus rhythm, heart rate in 90s normal S1, Normal S2, No murmurs Abdomen: Bowel Sounds sluggish, Soft, Non Tender, Non-Distended : No renal angle tenderness. No suprapubic tenderness. Extremities: No edema, Capillary Refill Less than 3 Seconds Skin: No rashes, No breakdown Musculoskeletal: No Tenderness to Palpation of Joints or Extremities Neurological: Cranial nerves II-XII grossly intact, Deep Tendon Reflexes 2+/4 and Symmetrical, Neuro grossly intact Psych/Mental Status: Normal Affect, Appropriate. Assessment & Plan Assessment/Plan (1) Pulmonary embolism: (2) Rhinovirus infection: (3) Acute hypoxemic respiratory failure: (4) COPD exacerbation: PLAN: This is a 60-year-old gentleman admitted with shortness of breath and hypoxia and on assessment found to be acute hypoxic respiratory failure. 1. Acute hypoxic respiratory insufficiency secondary to acute pulmonary embolism, suspected COPD exacerbation secondary to rhinovirus: Patient is still on 10 L of oxygen through nasal cannula. CTA of chest shows pulmonary embolism involving the branches of the left upper lobe pulmonary artery. On therapeutic Lovenox. Urinary antigens are negative. Antibiotic discontinued continue supplement oxygen to maintain O2 at or above 90%. Being comanaged with tube draw helper. On bronchodilator, IV Solu-Medrol. Respiratory panel positive for rhinovirus. PFT as an outpatient. 2. 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 Durand. Patient on chemotherapy. 3. Abdominal pain with nausea and vomiting: Acute abdominal series done but is not officially reported. It shows nonspecific bowel gas pattern. 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 Former tobacco use-quit 3 years ago. Encouraged continued cessation. DVT prophylaxis-Lovenox subcu Total time of the visit including total time spent in counseling or coordination of care, (more than 50% of the total time, spent in obtaining medical information from nurses and other ancillary care providers,explaining to the patient about labs, imaging, diagnosis and management), , review of labs and imaging is 30 minutes. Microbiology Past 72 Hours 12/20/20 19:08 Mucosa - Nasopharyngeal Respiratory Panel (PCR) - Final Rhinovirus 12/20/20 21:30 Urine, Random Legionella Antigen - Final 12/20/20 21:30 Urine, Random Streptococcus pneumoniae Antigen (M - Final 12/20/20 10:30 Mucosa - Nose SARS-CoV-2 Antigen (Rapid) - Final Laboratory Results 12/22/20 03:30: WBC 10.8, RBC 3.33 L, Hgb 10.0 L, Hct 31.4 L, MCV 94.3 H, MCH 30.0, MCHC 31.8 L, RDW Std Deviation 58.8 H, RDW Coeff of Mathieu 17.1 H, Plt Count 251, MPV 9.0, Immature Gran % (Auto) 0.600, Neut % (Auto) 91.9 H, Lymph % (Auto) 4.7 L, [place] % (Auto) 2.7, Eos % (Auto) 0.0, Baso % (Auto) 0.1, Absolute Neuts (auto) 10.0 H, Absolute Lymphs (auto) 0.51 L, Nucleated RBC % 0, Differential Comment SCANNED 12/22/20 03:30: Sodium 134 L, Potassium 4.2, Chloride 100, Carbon Dioxide 26.0, Anion Gap 8, BUN 12, Creatinine 0.56 L, Estim Creat Clear Calc 142.03, Est GFR (MDRD) Af Amer 191, Est GFR (MDRD) Non-Af 157, BUN/Creatinine Ratio 21.3 H, Glucose 152 H, Calcium 8.0 L Clinical Impression(s) from Imaging Studies Chest CTA 12/20/20 11:00 IMPRESSION: Pulmonary embolism involving the branches of the left upper lobe pulmonary artery. Mediastinal and hilar lymphadenopathy as well as a mass in the anterior superior aspect of the mediastinum as described. Spiculated nodule in the left upper lobe. Diffuse groundglass appearance with the scarring worse in the right hemithorax. Liver metastasis. Retroperitoneal lymphadenopathy. Charges/Coding Visit Charges Inpatient E&M: 02519 Subs Hosp L3
[2020-12-23] MEDS: morphine SR 15 MG Tablet PO (19:52)
[2020-12-24] VITALS (15 sets, daily range): BP systolic 114–154; BP diastolic 67–83; PULSE 71–105; RESP 12–20; TEMP 36.4–36.8; O2SAT 90–97
[2020-12-24] MEDS: 0.9% Saline Lock 10 ML Syringe IV ×4 (03:21→20:55)
[2020-12-24] MEDS: fentaNYL 100 MCG/2 ML Ampul 50 MCG IV ×2 (03:21→20:54)
[2020-12-24] MEDS: LORazepam 1 MG Tablet PO (06:48)
[2020-12-24] MEDS: Ipratropium/Albuterol Sulfate 3 ML AMPUL.NEB INHALATION ×3 (07:05→18:55)
[2020-12-24 08:06] LABS: Anion Gap 7 (5-15); BUN 13 mg/dL (7-18); BUN/Creat Ratio 23.4 RATIO (10-20); Calcium,Total 8.2 mg/dL (8.5-10.1); Chloride 100 mmol/L (98-107); Creatinine, Serum 0.56 mg/dL (0.70-1.30); EST Glomerular Filtration Rate 160 mL/min (>60); Est Glom Filt Rate - Afr Amer 193 mL/min (>60); Estimated Creatinine Clearance 138.21 ml/min; Glucose 102 mg/dL (74-106); Potassium 4.3 mmol/L (3.5-5.1); Sodium Level 133 mmol/L (136-145)
--- NOTE | 2020-12-24 08:11 | PN.CC_ITS ---
Assessment & Plan Assessment/Plan (1) Acute hypoxemic respiratory failure: (2) Pulmonary embolism: (3) Rhinovirus infection: (4) COPD exacerbation: PLAN: RECOMMENDATIONS: 1. Continue Solu-Medrol and therapeutic Lovenox at current dosing 2. We will add anxiolytic therapy 3. Increase activity as tolerated 4. Minimize IV fluids. Okay to take p.o. 5. Anticipate improvement in respiratory status with time given viral infection IMPRESSIONS: 1. Acute hypoxic respiratory failure secondary to pulmonary embolism and suspected COPD exacerbation secondary to rhinovirus Patient with multiple etiologies of acute hypoxic respiratory failure. 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 Patient is appropriately on Lovenox therapy. Patient has tested positive for rhinovirus and has emphysematous changes noted on CT scan. Clinical suspicion for an acute COPD exacerbation secondary to rhinovirus, but PFTs to confirm COPD have not been done. This can be completed as an ou tpatient. We will challenge with diuretics today. Continue Solu-Medrol and Lovenox at therapeutic dosing. Wean oxygen as tolerated. Clinical suspicion that most of the effect of PE is gone and remaining hypoxia is secondary to COPD exacerbation secondary to rhinovirus. This will be slower to respond to therapy given patient is not on maintenance inhalers at baseline. 2. 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 Patient does state that he would want to be a full code at this time, but wants to check with his . Given malignancy, Lovenox is likely the anticoagulation of choice. Caty ent is reporting that he does not want to live like this but in my opinion, do anticipate improvement in respiratory status with time to recover from COPD exacerbation 3. Abdominal pain Unclear etiology. Patient does have a slight elevation of his alkaline phosphatase. We will likely recheck this tomorrow. Patient is not reporting a temporal relationship with food, but cholecystitis would be a concern, along with metastatic disease. Subjective Subjective Patient did okay overnight. Patient did have to be increased to 10 L nasal cannula, but nursing thought this was secondary to anxiety. Patient readily admits that he is very anxious and does not want to live like this. Patient continues to desaturate with activity. Patient states that he has had very little p.o. intake over the last 24 hours, but was able to tolerate some Jell-O overnight. Patient unable to tolerate nutritional supplements Objective Data Objective Data Vital Signs: Vital Signs Temp Pulse Resp BP Pulse Ox 36.4 C L 73 20 H 153/83 H 94 12/24/20 03:15 12/24/20 07:23 12/24/20 03:15 12/24/20 03:15 12/24/20 03:15 Oxygen Flow Rate (L/min) 10 Oxygen Delivery Method Nasal Cannula Weight: 68.8 kg Body Mass Index (BMI) 24.0 Intake & Output: Intake and Output for Last 24 Hours 12/22/20 12/23/20 12/24/20 23:59 23:59 23:59 Intake Total 244.50 / 259.50 247.75 / 307.75 120 / 120 Output Total 1450 / 1450 775 / 950 650 / 650 Balance -1205.50 / -1190.50 -527.25 / -642.25 -530 / -530 Medical Nutrition Assessment Dietitian: Nutrition Therapy Diagnosis Start: 12/21/20 09:42 Freq: Status: Active Protocol: Document 12/23/20 09:58 SLA (Rec: 12/23/20 09:59 SLA [id number]) Nutrition Malnutrition Evidence of Malnutrition Exists Yes Malnutrition (severe): Chronic Evidenced By Suboptimal Energy Intake ( Severe),Weight Loss (Severe) Intake Problem Inadequate Oral Intake Etiology r/t decreased appetite w/ increased nutrient needs d/t lung cancer Signs/Symptoms as evidenced by pt reports of chronically reduced appetite over past 5 months, estimated PO intake meeting <75% of pt's nutritional needs x 5 months, estimated PO intake meeting < 50% of pt's nutritional needs over past 4 days Status Active Problem Clinical Problem Chronic Disease or Condition Related Malnutrition Etiology chronic, severe malnutrition r /t inadequate energy intake w/ increased energy needs d/t cancer Signs/Symptoms as evidenced by unintentional wt loss of 21#/11.6% x 5 months, estimated PO intake meeting <75% of pt's nutritional needs x 5 months Status Active Problem Recommendation Dietitian Recommendations/Changes Regular diet. Pt currently not agreeable to Ensure or other oral nutrition supplements- he is aware they are available if requested. Pt encouraged to order high protein/nutrient dense foods, kitchen to make smoothies for pt if requested. Lab / Micro Data Result Diagrams: 12/23/20 04:50 12/24/20 07:19 Labs: Laboratory Results - last 24 hr 12/24/20 07:19: Sodium 133 L, Potassium 4.3, Chloride 100, Carbon Dioxide 26.0, Anion Gap 7, BUN 13, Creatinine 0.56 L, Estim Creat Clear Calc 138.21, Est GFR (MDRD) Af Amer 193, Est GFR (MDRD) Non-Af 160, BUN/Creatinine Ratio 23.4 H, Glucose 102, Calcium 8.2 L Micro: Microbiology 12/20/20 10:39 Blood Culture (Wb) - Right Forearm Blood Culture - Preliminary No growth in 48 hours. 12/20/20 10:28 Blood Culture (Wb) - Left Forearm Blood Culture - Preliminary No growth in 48 hours. 12/20/20 19:08 Mucosa - Nasopharyngeal Respiratory Panel (PCR) - Final Rhinovirus 12/20/20 21:30 Urine, Random Legionella Antigen - Final 12/20/20 21:30 Urine, Random Streptococcus pneumoniae Antigen (M - Final 12/20/20 10:30 Mucosa - Nose SARS-CoV-2 Antigen (Rapid) - Final Radiography Diagnostic Testing: Radiology Impression Acute Abdomen Series 12/23/20 08:44 IMPRESSION: Nonspecific bowel gas pattern. Electronically Signed: Keny Dickey MD at 12:07 EDT , Service support , Physical Exam Const alert and oriented x3 General Appearance: cooperative, well developed and anxious HEENT normocephalic, head/scalp atraumatic and moist oral mucous membranes Eyes PERRL and EOMs intact bilaterally Neck full ROM and no lymphadenopathy Chest inspection of chest normal Resp Resp Narrative: Mild conversational dyspnea despite high flow nasal cannula Effort and Inspection: able to speak in complete sentences and prolonged expiratory phase Auscultation: diminished lung sounds; Negative for rales, rhonchi or wheezes Percussion: Negative for dullness Cardio regular rate, regular rhythm, S1 normal heart sound, S2 normal heart sound, no murmurs, no rub and no gallops GI normal to inspection, nondistended, normoactive bowel sounds no CVA tenderness Extremity no clubbing, cyanosis or edema Skin no rashes or lesions noted Neuro oriented x3, CN's II-XII intact bilaterally, moves all extremities and no focal motor deficits Psych cooperative and affect normal Charges/Coding Visit Charges Inpatient E&M: 45370 Subs Hosp L3
[2020-12-24] MEDS: QUEtiapine 25 MG Tablet PO (09:38)
[2020-12-24] MEDS: Furosemide 20 MG/2 ML VIAL IV (09:38)
[2020-12-24] MEDS: Enoxaparin 80 MG/0.8 ML Syringe 70 MG SC ×2 (09:38→20:58)
[2020-12-24] MEDS: morphine SR 15 MG Tablet PO ×2 (09:39→19:51)
--- NOTE | 2020-12-24 13:37 | PN.HOSP_ITS ---
Subjective Subjective Patient has anxiety., hypoxia and tachypnea. 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 Patient is still on 10 L of oxygen Objective Data Objective Data Vital Signs: Vital Signs Temp Pulse Resp BP Pulse Ox 98.2 F 90 12 114/67 96 12/24/20 13:11 12/24/20 13:11 12/24/20 13:11 12/24/20 13:11 12/24/20 13:11 Oxygen Flow Rate (L/min) 10 Oxygen Delivery Method Nasal Cannula Weight: 151 lb 10.848 oz Body Mass Index (BMI) 24.0 Intake & Output: Intake and Output for Last 24 Hours 12/22/20 12/23/20 12/24/20 23:59 23:59 23:59 Intake Total 244.50 / 259.50 247.75 / 307.75 520 / 520 Output Total 1450 / 1450 775 / 950 2275 / 2275 Balance -1205.50 / -1190.50 -527.25 / -642.25 -1755 / -1755 Medical Nutrition Assessment Dietitian: Nutrition Therapy Diagnosis Start: 12/21/20 09:42 Freq: Status: Active Protocol: Document 12/23/20 09:58 SLA (Rec: 12/23/20 09:59 SLA [id number]) Nutrition Malnutrition Evidence of Malnutrition Exists Yes Malnutrition (severe): Chronic Evidenced By Suboptimal Energy Intake ( Severe),Weight Loss (Severe) Intake Problem Inadequate Oral Intake Etiology r/t decreased appetite w/ increased nutrient needs d/t lung cancer Signs/Symptoms as evidenced by pt reports of chronically reduced appetite over past 5 months, estimated PO intake meeting <75% of pt's nutritional needs x 5 months, estimated PO intake meeting < 50% of pt's nutritional needs over past 4 days Status Active Problem Clinical Problem Chronic Disease or Condition Related Malnutrition Etiology chronic, severe malnutrition r /t inadequate energy intake w/ increased energy needs d/t cancer Signs/Symptoms as evidenced by unintentional wt loss of 21#/11.6% x 5 months, estimated PO intake meeting <75% of pt's nutritional needs x 5 months Status Active Problem Recommendation Dietitian Recommendations/Changes Regular diet. Pt currently not agreeable to Ensure or other oral nutrition supplements- he is aware they are available if requested. Pt encouraged to order high protein/nutrient dense foods, kitchen to make smoothies for pt if requested. Lab / Micro Data Result Diagrams: 12/23/20 04:50 12/24/20 07:19 Labs: Laboratory Results - last 24 hr 12/24/20 07:19: Sodium 133 L, Potassium 4.3, Chloride 100, Carbon Dioxide 26.0, Anion Gap 7, BUN 13, Creatinine 0.56 L, Estim Creat Clear Calc 138.21, Est GFR (MDRD) Af Amer 193, Est GFR (MDRD) Non-Af 160, BUN/Creatinine Ratio 23.4 H, Glucose 102, Calcium 8.2 L Micro: Microbiology 12/20/20 10:39 Blood Culture (Wb) - Right Forearm Blood Culture - Preliminary No growth in 48 hours. 12/20/20 10:28 Blood Culture (Wb) - Left Forearm Blood Culture - Preliminary No growth in 48 hours. 12/20/20 19:08 Mucosa - Nasopharyngeal Respiratory Panel (PCR) - Final Rhinovirus 12/20/20 21:30 Urine, Random Legionella Antigen - Final 12/20/20 21:30 Urine, Random Streptococcus pneumoniae Antigen (M - Final 12/20/20 10:30 Mucosa - Nose SARS-CoV-2 Antigen (Rapid) - Final Physical Exam Narrative Physical exam General: Alert, Oriented x3, Cooperative, BMI 23.1 kg/m? HEENT: Atraumatic, PERRLA, EOMI, Normocephalic Oral: No Gingival or Mucosal Lesions/ Ulcerations Neck: Supple, No JVD, Negative Carotid Bruits Lungs: Air entry severely diminished in bilateral lung bases. Expiratory phase prolonged. Severe hypoxia. Dyspnea on exertion Cardiovascular: Sinus rhythm, heart rate in 90s normal S1, Normal S2, No murmurs Abdomen: Bowel Sounds sluggish, Soft, Non Tender, Non-Distended : No renal angle tenderness. No suprapubic tenderness. Extremities: No edema, Capillary Refill Less than 3 Seconds Skin: No rashes, No breakdown Musculoskeletal: No Tenderness to Palpation of Joints or Extremities Neurological: Cranial nerves II-XII grossly intact, Deep Tendon Reflexes 2+/4 and Symmetrical, Neuro grossly intact Psych/Mental Status: Anxious. Assessment & Plan Assessment/Plan (1) Pulmonary embolism: (2) Rhinovirus infection: (3) Acute hypoxemic respiratory failure: (4) COPD exacerbation: PLAN: This is a 60-year-old gentleman admitted with shortness of breath and hypoxia and on assessment found to be acute hypoxic respiratory failure. 1. Acute hypoxic respiratory insufficiency secondary to acute pulmonary embolism, suspected COPD exacerbation secondary to rhinovirus: Patient is still on 10 L of oxygen through nasal cannula. CTA of chest shows pulmonary embolism involving the branches of the left upper lobe pulmonary artery. On therapeutic Lovenox. Urinary antigens are negative. Antibiotic discontinued continue supplement oxygen to maintain O2 at or above 90%. 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 On bronchodilator, IV Solu-Medrol. Respiratory panel positive for rhinovirus. PFT as an outpatient. 12/24: Patient still has severe hypoxia. Quetiapine 1 dose given. 2. 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 Durand. Patient on chemotherapy. 3. Abdominal pain with nausea and vomiting: Acute abdominal series done but is not officially reported. It shows nonspecific bowel gas pattern. 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 Former tobacco use-quit 3 years ago. Encouraged continued cessation. DVT prophylaxis-Lovenox subcu Chronic severe malnutrition Microbiology Past 72 Hours 12/20/20 10:39 Blood Culture (Wb) - Right Forearm Blood Culture - Preliminary No growth in 48 hours. 12/20/20 10:28 Blood Culture (Wb) - Left Forearm Blood Culture - Preliminary No growth in 48 hours. Laboratory Results 12/24/20 07:19: Sodium 133 L, Potassium 4.3, Chloride 100, Carbon Dioxide 26.0, Anion Gap 7, BUN 13, Creatinine 0.56 L, Estim Creat Clear Calc 138.21, Est GFR (MDRD) Af Amer 193, Est GFR (MDRD) Non-Af 160, BUN/Creatinine Ratio 23.4 H, Glucose 102, Calcium 8.2 L 12/24/20 07:19: WBC Pending, RBC Pending, Hgb Pending, Hct Pending, MCV Pending, MCH Pending, MCHC Pending, RDW Std Deviation Pending, RDW Coeff of Mathieu Pending, Plt Count Pending, Neut % (Auto) Pending, Absolute Neuts (auto) Pending Clinical Impression(s) from Imaging Studies Chest CTA 12/20/20 11:00 IMPRESSION: Pulmonary embolism involving the branches of the left upper lobe pulmonary artery. Mediastinal and hilar lymphadenopathy as well as a mass in the anterior superior aspect of the mediastinum as described. Spiculated nodule in the left upper lobe. Diffuse groundglass appearance with the scarring worse in the right hemithorax. Liver metastasis. Retroperitoneal lymphadenopathy. Charges/Coding Visit Charges Inpatient E&M: 30725 Subs Hosp L2
[2020-12-24 14:34] LABS: Absolute Lymphocyte Count 0.82 X10^3/uL (0.83-4.51); Absolute Neutrophil Count 12.7 X10^3/uL (2.0-7.7); Basophil# 0.01 X10^3/uL; Basophil% 0.1 % (0-1); Hematocrit 37.3 % (40-54); Hemoglobin 11.6 g/dL (13.0-16.5); Lymphocyte # 0.82 X10^3/ul (0.83-4.51); Lymphocyte % 5.8 % (19-41); Mean Corp Hgb Conc 31.1 g/dL (32-36); Mean Corpuscular Hgb 29.7 pg (27.0-32.0); Mean Corpuscular Volume 95.6 fL (80-94); Mean Platelet Vol. 9.7 fl (6.2-12.0); Monocyte# 0.57 X10^3/uL; NRBC Flagged by Analyzer 0 % (0-5); Neutrophil # 12.65 X10^3/uL (2.7-7.7); Platelet Count 297 K/mm3 (150-450); RBC Distribution Width CV 17.4 % (11.6-14.6); RBC Distribution Width SD 60.5 fl (35.1-43.9); White Blood Count 14.2 K/mm3 (4.4-11.0)
[2020-12-24] MEDS: HYDROmorphone 2 MG TABLET PO (14:44)
[2020-12-24] MEDS: Ondansetron 4 MG/2 ML Vial IV (19:52)
[2020-12-24] MEDS: traZODone 50 MG Tablet PO (20:54)
[2020-12-25] VITALS (16 sets, daily range): BP systolic 129–142; BP diastolic 64–76; PULSE 81–104; RESP 16–18; TEMP 36.4–36.8; O2SAT 93–97
[2020-12-25] MEDS: fentaNYL 100 MCG/2 ML Ampul 50 MCG IV ×4 (02:56→22:12)
[2020-12-25] MEDS: 0.9% Saline Lock 10 ML Syringe IV ×4 (02:56→18:06)
[2020-12-25] MEDS: traZODone 50 MG Tablet PO (06:34)
[2020-12-25] MEDS: Ipratropium/Albuterol Sulfate 3 ML AMPUL.NEB INHALATION ×3 (06:57→19:25)
--- NOTE | 2020-12-25 07:19 | PN.CC_ITS ---
Assessment & Plan Assessment/Plan (1) Acute hypoxemic respiratory failure: (2) Pulmonary embolism: (3) Rhinovirus infection: (4) COPD exacerbation: PLAN: RECOMMENDATIONS: 1. Continue Solu-Medrol and therapeutic Lovenox at current dosing 2. Schedule Seroquel therapy 3. Increase activity as tolerated 4. Minimize IV fluids. Okay to take p.o. Diuretic challenge today 5. Possibly wean Solu-Medrol when oxygen requirements improved. Wean oxygen as tolerated. IMPRESSIONS: 1. Acute hypoxic respiratory failure secondary to pulmonary embolism and suspected COPD exacerbation secondary to rhinovirus Patient with multiple etiologies of acute hypoxic respiratory failure. 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 Patient is appropriately on Lovenox therapy. Patient has tested positive for rhinovirus and has emphysematous changes noted on CT scan. Clinical suspicion for an acute COPD exacerbation secondary to rhinovirus, but PFTs to confirm COPD have not been done. This can be completed as an outpatient. We will challenge with diuretics again today. Continue Solu-Medrol and Lovenox at therapeutic dosing. Wean oxygen as tolerated. Clinical suspicion that most of the effect of PE is gone and remaining hypoxia is secondary to COPD exacerbation secondary to rhinovirus. This will be slower to respond to therapy given patient is not on maintenance inhalers at baseline. We will schedule anxiolytic as this will help with pulmonary mechanics. 2. 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 Patient does state that he would want to be a full code at this time, but wants to check with his . Given malignancy, Lovenox is likely the anticoagulation of choice. Patient is reporting that he does not want to live like this but in my opinion, do anticipate improvement in respiratory status with time to recover from COPD exacerbation 3. Abdominal pain Unclear etiology. Patient does have a slight elevation of his alkaline phosphatase. We will likely recheck this tomorrow. Patient is not reporting a temporal relationship with food, but cholecystitis would be a concern, along with metastatic disease. Subjective Subjective Patient did okay overnight. Patient continues to have significant anxiety. Patient states that he responded well to the Seroquel therapy yesterday and would like this to be continued. Patient does believe his respiratory status is improved today compared to yesterday. Patient did receive trazodone overnight but did not feel this was as effective as Seroquel. Objective Data Objective Data Vital Signs: Vital Signs Temp Pulse Resp BP Pulse Ox 36.5 C L 81 18 129/65 H 96 12/25/20 04:18 12/25/20 04:18 12/25/20 04:18 12/25/20 04:18 12/25/20 04:18 Oxygen Flow Rate (L/min) 9 Oxygen Delivery Method Nasal Cannula Weight: 67.6 kg Body Mass Index (BMI) 24.0 Intake & Output: Intake and Output for Last 24 Hours 12/23/20 12/24/20 12/25/20 23:59 23:59 23:59 Intake Total 247.75 / 307.75 1680 / 1680 240 / 240 Output Total 775 / 950 3475 / 3475 1150 / 1150 Balance -527.25 / -642.25 -1795 / -1795 -910 / -910 Medical Nutrition Assessment Dietitian: Nutrition Therapy Diagnosis Start: 12/21/20 09:42 Freq: Status: Active Protocol: Document 12/23/20 09:58 SLA (Rec: 12/23/20 09:59 SLA [id number]) Nutrition Malnutrition Evidence of Malnutrition Exists Yes Malnutrition (severe): Chronic Evidenced By Suboptimal Energy Intake ( Severe),Weight Loss (Severe) Intake Problem Inadequate Oral Intake Etiology r/t decreased appetite w/ increased nutrient needs d/t lung cancer Signs/Symptoms as evidenced by pt reports of chronically reduced appetite over past 5 months, estimated PO intake meeting <75% of pt's nutritional needs x 5 months, estimated PO intake meeting < 50% of pt's nutritional needs over past 4 days Status Active Problem Clinical Problem Chronic Disease or Condition Related Malnutrition Etiology chronic, severe malnutrition r /t inadequate energy intake w/ increased energy needs d/t cancer Signs/Symptoms as evidenced by unintentional wt loss of 21#/11.6% x 5 months, estimated PO intake meeting <75% of pt's nutritional needs x 5 months Status Active Problem Recommendation Dietitian Recommendations/Changes Regular diet. Pt currently not agreeable to Ensure or other oral nutrition supplements- he is aware they are available if requested. Pt encouraged to order high protein/nutrient dense foods, kitchen to make smoothies for pt if requested. Lab / Micro Data Result Diagrams: 12/24/20 07:19 12/24/20 07:19 Labs: Laboratory Results - last 24 hr 12/24/20 07:19: Sodium 133 L, Potassium 4.3, Chloride 100, Carbon Dioxide 26.0, Anion Gap 7, BUN 13, Creatinine 0.56 L, Estim Creat Clear Calc 138.21, Est GFR (MDRD) Af Amer 193, Est GFR (MDRD) Non-Af 160, BUN/Creatinine Ratio 23.4 H, Glucose 102, Calcium 8.2 L 12/24/20 07:19: WBC 14.2 H, RBC 3.90 L, Hgb 11.6 L, Hct 37.3 L, MCV 95.6 H, MCH 29.7, MCHC 31.1 L D, RDW Std Deviation 60.5 H, RDW Coeff of Mathieu 17.4 H, Plt Count 297, MPV 9.7, Immature Gran % (Auto) 1.100 H, Neut % (Auto) 89.0 H, Lymph % (Auto) 5.8 L, Rutherford % (Auto) 4.0, Eos % (Auto) 0.0, Baso % (Auto) 0.1, Absolute Neuts (auto) 12.7 H, Absolute Lymphs (auto) 0.82 L, Nucleated RBC % 0 Micro: Microbiology 12/20/20 10:39 Blood Culture (Wb) - Right Forearm Blood Culture - Preliminary No growth in 48 hours. 12/20/20 10:28 Blood Culture (Wb) - Left Forearm Blood Culture - Preliminary No growth in 48 hours. 12/20/20 19:08 Mucosa - Nasopharyngeal Respiratory Panel (PCR) - Final Rhinovirus 12/20/20 21:30 Urine, Random Legionella Antigen - Final 12/20/20 21:30 Urine, Random Streptococcus pneumoniae Antigen (M - Final 12/20/20 10:30 Mucosa - Nose SARS-CoV-2 Antigen (Rapid) - Final Physical Exam Const alert and oriented x3 General Appearance: cooperative, well developed and anxious HEENT normocephalic, head/scalp atraumatic and moist oral mucous membranes Eyes PERRL and EOMs intact bilaterally Neck full ROM and no lymphadenopathy Chest inspection of chest normal Resp Resp Narrative: Mild conversational dyspnea despite high flow nasal cannula Effort and Inspection: able to speak in complete sentences and prolonged expiratory phase Auscultation: diminished lung sounds; Negative for rales, rhonchi or wheezes Percussion: Negative for dullness Cardio regular rate, regular rhythm, S1 normal heart sound, S2 normal heart sound, no murmurs, no rub and no gallops GI normal to inspection, nondistended, normoactive bowel sounds no CVA tenderness Extremity no clubbing, cyanosis or edema Skin no rashes or lesions noted Neuro oriented x3, CN's II-XII intact bilaterally, moves all extremities and no focal motor deficits Psych cooperative and affect normal Charges/Coding Visit Charges Inpatient E&M: 05259 Subs Hosp L3
[2020-12-25] MEDS: morphine SR 15 MG Tablet PO ×2 (08:00→20:36)
[2020-12-25 08:12] LABS: Hematocrit 35.6 % (40-54); Hemoglobin 11.7 g/dL (13.0-16.5); Mean Corp Hgb Conc 32.9 g/dL (32-36); Mean Corpuscular Hgb 30.4 pg (27.0-32.0); Mean Corpuscular Volume 92.5 fL (80-94); Mean Platelet Vol. 8.4 fl (6.2-12.0); Platelet Count 282 K/mm3 (150-450); RBC Distribution Width CV 17.1 % (11.6-14.6); RBC Distribution Width SD 57.1 fl (35.1-43.9); Red Blood Count 3.85 M/mm3 (4.6-6.2); White Blood Count 12.9 K/mm3 (4.4-11.0)
[2020-12-25 08:17] LABS: Scan Indicated on CBC? Y/N NO
[2020-12-25 08:36] LABS: Anion Gap 7 (5-15); BUN 15 mg/dL (7-18); Calcium,Total 7.9 mg/dL (8.5-10.1); Chloride 95 mmol/L (98-107); Creatinine, Serum 0.63 mg/dL (0.70-1.30); EST Glomerular Filtration Rate 139 mL/min (>60); Est Glom Filt Rate - Afr Amer 169 mL/min (>60); Estimated Creatinine Clearance 120.71 ml/min; Glucose 106 mg/dL (74-106); Potassium 3.9 mmol/L (3.5-5.1); Sodium Level 130 mmol/L (136-145)
[2020-12-25] MEDS: Ergocalciferol 1.25 MG (50, 000 UNIT) Capsule PO (09:55)
[2020-12-25] MEDS: Enoxaparin 80 MG/0.8 ML Syringe 70 MG SC ×2 (09:55→20:38)
[2020-12-25] MEDS: QUEtiapine 25 MG Tablet PO ×2 (09:55→20:38)
[2020-12-25] MEDS: Furosemide 20 MG Tablet PO ×2 (09:55→17:00)
--- NOTE | 2020-12-25 11:05 | CT_ITS ---
STUDY: CT ABDOMEN AND PELVIS WITH CONTRAST REASON FOR EXAM: Male, 60 years old. Right upper quadrant pain. History of lung cancer with liver metastasis. RADIATION DOSAGE (If Supplied By Facility): CTDIvol = ( 13.36 ) mGy, DLP = ( 575.64 ) mGycm TECHNIQUE: Transaxial images were obtained from the dome of the diaphragm to the symphysis pubis with oral contrast. 100 ml of ISOVUE-300 contrast was administered. Sagittal and coronal images were reconstructed. Individualized dose optimization techniques were used for this CT. COMPARISON: None. FINDINGS: The visualized lung bases are clear. There is airspace opacity in the right lower lobe which is slightly worse when compared with the chest CT dated 12/20/20 There are no calcified gallstones present. There are innumerable hypodense lesions noted throughout the liver, consistent with the patient''s history of metastasis. The spleen is normal in size. The pancreas is within normal limits. The adrenal glands are within normal limits. There are no renal or ureteral stones. There is no hydronephrosis. There is a 1.1 cm simple cyst in the left kidney. There are no right renal lesions. Normal visualized stomach. There is no bowel obstruction or inflammation. There are colonic diverticula without evidence of diverticulitis. The appendix is visualized and appears normal. The aorta is normal in caliber. There is extensive retroperitoneal lymphadenopathy in the upper abdomen. There is no free air, free fluid or fluid collection. There are multiple lytic and sclerotic lesions throughout the visualized osseous structure, consistent with metastasis. CT/Abdomen/Pelvis WITH Contrast IMPRESSION: Innumerable hepatic lesions, consistent with metastasis. Extensive retroperitoneal lymphadenopathy in the upper abdomen. Multiple lytic and sclerotic lesions throughout the visualized osseous structures, consistent with osseous metastasis. No bowel obstruction or inflammation. Normal appendix. Colonic diverticula without evidence of acute diverticulitis. No urinary calculi. No hydronephrosis. Airspace opacity in the right lower lobe which is increased when compared with the chest CT dated 12/20/20. Electronically Signed: Montrell Birmingham MD at 15:51 EDT Tel , Service support ,
--- NOTE | 2020-12-25 11:07 | PN.HOSP_ITS ---
Subjective Subjective Patient complain of abdominal pain mainly over right upper quadrant. Has little bowel movement yesterday and today. No fever. Objective Data Objective Data Vital Signs: Vital Signs Temp Pulse Resp BP Pulse Ox 98.1 F 94 16 133/64 H 95 12/25/20 09:52 12/25/20 09:52 12/25/20 09:52 12/25/20 09:52 12/25/20 09:52 Oxygen Flow Rate (L/min) 9 Oxygen Delivery Method Nasal Cannula Weight: 149 lb 0.52 oz Body Mass Index (BMI) 24.0 Intake & Output: Intake and Output for Last 24 Hours 12/23/20 12/24/20 12/25/20 23:59 23:59 23:59 Intake Total 247.75 / 307.75 1680 / 1680 240 / 240 Output Total 775 / 950 3475 / 3475 1150 / 1150 Balance -527.25 / -642.25 -1795 / -1795 -910 / -910 Medical Nutrition Assessment Dietitian: Nutrition Therapy Diagnosis Start: 12/21/20 09:42 Freq: Status: Active Protocol: Document 12/23/20 09:58 SLA (Rec: 12/23/20 09:59 SLA [id number]) Nutrition Malnutrition Evidence of Malnutrition Exists Yes Malnutrition (severe): Chronic Evidenced By Suboptimal Energy Intake ( Severe),Weight Loss (Severe) Intake Problem Inadequate Oral Intake Etiology r/t decreased appetite w/ increased nutrient needs d/t lung cancer Signs/Symptoms as evidenced by pt reports of chronically reduced appetite over past 5 months, estimated PO intake meeting <75% of pt's nutritional needs x 5 months, estimated PO intake meeting < 50% of pt's nutritional needs over past 4 days Status Active Problem Clinical Problem Chronic Disease or Condition Related Malnutrition Etiology chronic, severe malnutrition r /t inadequate energy intake w/ increased energy needs d/t cancer Signs/Symptoms as evidenced by unintentional wt loss of 21#/11.6% x 5 months, estimated PO intake meeting <75% of pt's nutritional needs x 5 months Status Active Problem Recommendation Dietitian Recommendations/Changes Regular diet. Pt currently not agreeable to Ensure or other oral nutrition supplements- he is aware they are available if requested. Pt encouraged to order high protein/nutrient dense foods, kitchen to make smoothies for pt if requested. Lab / Micro Data Result Diagrams: 12/25/20 07:48 12/25/20 07:48 Labs: Laboratory Results - last 24 hr 12/24/20 07:19: WBC 14.2 H, RBC 3.90 L, Hgb 11.6 L, Hct 37.3 L, MCV 95.6 H, MCH 29.7, MCHC 31.1 L D, RDW Std Deviation 60.5 H, RDW Coeff of Mathieu 17.4 H, Plt Count 297, MPV 9.7, Immature Gran % (Auto) 1.100 H, Neut % (Auto) 89.0 H, Lymph % (Auto) 5.8 L, Smyth % (Auto) 4.0, Eos % (Auto) 0.0, Baso % (Auto) 0.1, Absolute Neuts (auto) 12.7 H, Absolute Lymphs (auto) 0.82 L, Nucleated RBC % 0 12/25/20 07:48: WBC 12.9 H, RBC 3.85 L, Hgb 11.7 L, Hct 35.6 L, MCV 92.5, MCH 30.4, MCHC 32.9 D, RDW Std Deviation 57.1 H, RDW Coeff of Mathieu 17.1 H, Plt Count 282, MPV 8.4 12/25/20 07:48: Sodium 130 L, Potassium 3.9, Chloride 95 L, Carbon Dioxide 28.0, Anion Gap 7, BUN 15, Creatinine 0.63 L, Estim Creat Clear Calc 120.71, Est GFR (MDRD) Af Amer 169, Est GFR (MDRD) Non-Af 139, BUN/Creatinine Ratio 24.0 H, Glucose 106, Calcium 7.9 L Micro: Microbiology 12/20/20 10:39 Blood Culture (Wb) - Right Forearm Blood Culture - Preliminary No growth in 48 hours. 12/20/20 10:28 Blood Culture (Wb) - Left Forearm Blood Culture - Preliminary No growth in 48 hours. 12/20/20 19:08 Mucosa - Nasopharyngeal Respiratory Panel (PCR) - Final Rhinovirus 12/20/20 21:30 Urine, Random Legionella Antigen - Final 12/20/20 21:30 Urine, Random Streptococcus pneumoniae Antigen (M - Final 12/20/20 10:30 Mucosa - Nose SARS-CoV-2 Antigen (Rapid) - Final Physical Exam Narrative Physical exam General: Alert, Oriented x3, Cooperative, BMI 23.1 kg/m? HEENT: Atraumatic, PERRLA, EOMI, Normocephalic Oral: No Gingival or Mucosal Lesions/ Ulcerations Neck: Supple, No JVD, Negative Carotid Bruits Lungs: Air entry severely diminished in bilateral lung bases. Expiratory phase prolonged. Severe hypoxia. Dyspnea on exertion Cardiovascular: Sinus rhythm, heart rate in 90s normal S1, Normal S2, No murmurs Abdomen: Tenderness present over right upper quadrant, right costal margin. Liver enlarged and tender. Bowel Sounds sluggish, soft, scaphoid. Nondistended : No renal angle tenderness. No suprapubic tenderness. Extremities: No edema, Capillary Refill Less than 3 Seconds Skin: No rashes, No breakdown Musculoskeletal: No Tenderness to Palpation of Joints or Extremities Neurological: Cranial nerves II-XII grossly intact, Deep Tendon Reflexes 2+/4 and Symmetrical, Neuro grossly intact Psych/Mental Status: Anxious. Assessment & Plan Assessment/Plan (1) Pulmonary embolism: (2) Rhinovirus infection: (3) Acute hypoxemic respiratory failure: (4) COPD exacerbation: PLAN: This is a 60-year-old gentleman admitted with shortness of breath and hypoxia and on assessment found to be acute hypoxic respiratory failure. 1. Acute hypoxic respiratory insufficiency secondary to acute pulmonary embolism, suspected COPD exacerbation secondary to rhinovirus: Patient is still on 10 L of oxygen through nasal cannula. CTA of chest shows pulmonary embolism involving the branches of the left upper lobe pulmonary artery. On therapeutic Lovenox. Urinary antigens are negative. Antibiotic discontinued continue supplement oxygen to maintain O2 at or above 90%. 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 On bronchodilator, IV Solu-Medrol. Respiratory panel positive for rhinovirus. PFT as an outpatient. 12/24: Patient still has severe hypoxia. 12/25: On quetiapine 25 mg twice daily and anxiety level is better. Still on 10 L of oxygen. 2. 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 Durand. Patient on chemotherapy. 3. Abdominal pain with nausea and vomiting: Acute abdominal series done but is not officially reported. It shows nonspecific bowel gas pattern. 12/25: Tender hepatomegaly. Chest CT reviewed showed multiple points in the liver. CT abdomen with oral and IV contrast ordered and done. Official report pending but shows multiple mets in the liver and hepatomegaly. 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 Former tobacco use-quit 3 years ago. Encouraged continued cessation. DVT prophylaxis-Lovenox subcu Chronic severe malnutrition Discussed with the patient's near the bedside regarding abdominal pain and small cell lung cancer with mets, its disease course with poor prognosis. Clinical Impression(s) from Imaging Studies Chest CTA 12/20/20 11:00 IMPRESSION: Pulmonary embolism involving the branches of the left upper lobe pulmonary artery. Mediastinal and hilar lymphadenopathy as well as a mass in the anterior superior aspect of the mediastinum as described. Spiculated nodule in the left upper lobe. Diffuse groundglass appearance with the scarring worse in the right hemithorax. Liver metastasis. Retroperitoneal lymphadenopathy. Charges/Coding Visit Charges Inpatient E&M: 85492 Subs Hosp L2
[2020-12-26] VITALS (14 sets, daily range): BP systolic 131–142; BP diastolic 77–80; PULSE 82–108; RESP 12–20; TEMP 36.3–36.8; O2SAT 91–97
[2020-12-26] MEDS: fentaNYL 100 MCG/2 ML Ampul 50 MCG IV ×3 (01:57→09:49)
[2020-12-26] MEDS: 0.9% Saline Lock 10 ML Syringe IV ×2 (05:13→20:54)
[2020-12-26] MEDS: Ipratropium/Albuterol Sulfate 3 ML AMPUL.NEB INHALATION ×3 (07:03→19:07)
[2020-12-26] MEDS: QUEtiapine 25 MG Tablet PO ×2 (08:17→20:54)
[2020-12-26] MEDS: Enoxaparin 80 MG/0.8 ML Syringe 70 MG SC ×2 (08:17→20:54)
[2020-12-26] MEDS: morphine SR 15 MG Tablet PO ×2 (08:17→19:29)
--- NOTE | 2020-12-26 12:18 | PN.CC_ITS ---
Assessment & Plan Assessment/Plan (1) COPD exacerbation: (2) Rhinovirus infection: (3) Pulmonary embolism: PLAN: RECOMMENDATIONS: 1. Continue to wean supplemental oxygen to maintain saturations at or above 90%. 2. Continue scheduled bronchodilator therapy and IV steroids. 3. Hold off on any additional diuretic therapy given hyponatremia. 4. Clarify outpatient chemotherapy regimen. 5. Encourage incentive spirometer and mobilize patient as tolerated. IMPRESSIONS: 1. Acute hypoxemic respiratory failure Likely multifactorial in etiology. 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 In addition, he was identified as having a pulmonary embolism at presentation. The patient has also tested positive for rhinovirus. While there is a possibility that the patient has underlying obstructive lung disease, a CTA chest also demonstrated diffuse groundglass changes, most pronounced throughout the right hemithorax. The patient has been maintained on bronchodilators and IV steroids. In addition, he has also received IV diuretic therapy. Despite the aforementioned, the patient remains tenuous from a respiratory perspective. His outpatient chemotherapy regimen is not known to me. Therefore, medication related pulmonary toxicity is also a possibility. We will need to clarify with the patient's oncologist. For now, would continue the patient on supplemental oxygen to maintain saturations at or above 90%. I would hold off on any additional diuretics given his hyponatremia. Continue systemic anticoagulation to address his pulmonary embolism. 2. Disseminated small cell lung cancer/anxiety/anemia Complicates care, management, recovery and prognosis. Follow-up with oncology on outpatient basis. Continue anxiolytic therapy as prescribed. This note was generated with [employer] dictation software. It may contain incorrect words, spelling, and punctuation that were not noted in checking the note before signing. Subjective Subjective The patient was seen and examined at the bedside this morning. Events from the last 24 hours have been reviewed. The patient is currently afebrile, hemodynamically stable and maintaining appropriate oxygen saturations on 6 L/min via nasal cannula. The patient is currently documented to be overall net -5.2 L for the hospital admission. The patient remains on therapeutic Lovenox, scheduled bronchodilators, and IV steroids. The patient is apparently being followed by Dr. Durand. However, I am unclear as to what his outpatient treatment regimen is. Objective Data Objective Data The patient's most recent lab work, culture data and imaging studies have all been personally reviewed. Respiratory viral panel was positive for rhinovirus. Vital Signs: Vital Signs Temp Pulse Resp BP Pulse Ox 98.2 F 95 18 134/79 H 94 12/26/20 08:00 12/26/20 08:00 12/26/20 08:00 12/26/20 08:00 12/26/20 08:00 Oxygen Flow Rate (L/min) 7 Oxygen Delivery Method Nasal Cannula Weight: 67 kg Body Mass Index (BMI) 24.0 Intake & Output: Intake and Output for Last 24 Hours 12/24/20 12/25/20 12/26/20 23:59 23:59 23:59 Intake Total 1680 / 1680 1620 / 1620 Output Total 3475 / 3475 2550 / 3000 700 / 700 Balance -1795 / -1795 -930 / -1380 -700 / -700 Medical Nutrition Assessment Dietitian: Nutrition Therapy Diagnosis Start: 12/21/20 09:42 Freq: Status: Active Protocol: Document 12/23/20 09:58 SLA (Rec: 12/23/20 09:59 SLA [id number]) Nutrition Malnutrition Evidence of Malnutrition Exists Yes Malnutrition (severe): Chronic Evidenced By Suboptimal Energy Intake ( Severe),Weight Loss (Severe) Intake Problem Inadequate Oral Intake Etiology r/t decreased appetite w/ increased nutrient needs d/t lung cancer Signs/Symptoms as evidenced by pt reports of chronically reduced appetite over past 5 months, estimated PO intake meeting <75% of pt's nutritional needs x 5 months, estimated PO intake meeting < 50% of pt's nutritional needs over past 4 days Status Active Problem Clinical Problem Chronic Disease or Condition Related Malnutrition Etiology chronic, severe malnutrition r /t inadequate energy intake w/ increased energy needs d/t cancer Signs/Symptoms as evidenced by unintentional wt loss of 21#/11.6% x 5 months, estimated PO intake meeting <75% of pt's nutritional needs x 5 months Status Active Problem Recommendation Dietitian Recommendations/Changes Regular diet. Pt currently not agreeable to Ensure or other oral nutrition supplements- he is aware they are available if requested. Pt encouraged to order high protein/nutrient dense foods, kitchen to make smoothies for pt if requested. Lab / Micro Data Attestation: I reviewed the patient's lab results. Result Diagrams: 12/25/20 07:48 12/25/20 07:48 Micro: Microbiology 12/20/20 10:39 Blood Culture (Wb) - Right Forearm Blood Culture - Final No growth in 5 days. 12/20/20 10:28 Blood Culture (Wb) - Left Forearm Blood Culture - Final No growth in 5 days. 12/20/20 19:08 Mucosa - Nasopharyngeal Respiratory Panel (PCR) - Final Rhinovirus 12/20/20 21:30 Urine, Random Legionella Antigen - Final 12/20/20 21:30 Urine, Random Streptococcus pneumoniae Antigen (M - Final 12/20/20 10:30 Mucosa - Nose SARS-CoV-2 Antigen (Rapid) - Final Radiography Diagnostic Testing: Radiology Impression Abdomen/Pelvis CT 12/25/20 11:05 IMPRESSION: Innumerable hepatic lesions, consistent with metastasis. Extensive retroperitoneal lymphadenopathy in the upper abdomen. Multiple lytic and sclerotic lesions throughout the visualized osseous structures, consistent with osseous metastasis. No bowel obstruction or inflammation. Normal appendix. Colonic diverticula without evidence of acute diverticulitis. No urinary calculi. No hydronephrosis. Airspace opacity in the right lower lobe which is increased when compared with the chest CT dated 12/20/20. Electronically Signed: Montrell Birmingham MD at 15:51 EDT Tel , Service support , Physical Exam Const alert General Appearance: cooperative and well developed HEENT normocephalic, head/scalp atraumatic and moist oral mucous membranes Eyes PERRL, EOMs intact bilaterally and conjunctivae normal Neck supple General: trachea midline Resp Auscultation: rales and diminished lung sounds Cardio regular rate and regular rhythm GI normal to inspection, nondistended, normoactive bowel sounds Extremity no clubbing, cyanosis or edema Skin no rashes or lesions noted Neuro no focal motor deficits Psych cooperative and affect normal Charges/Coding Visit Charges Inpatient E&M: 80766 Subs Hosp L2
[2020-12-26] MEDS: HYDROmorphone 2 MG TABLET PO ×2 (12:36→20:54)
[2020-12-26] MEDS: LORazepam 0.5 MG Tablet PO ×2 (14:40→22:47)
[2020-12-26] MEDS: Acetaminophen 325 MG Tablet 650 MG PO (19:30)
--- NOTE | 2020-12-26 20:14 | PN.HOSP_ITS ---
Subjective Subjective Patient was seen and examined today, I talked briefly with his who is in the room at the time of my examination. Patient is still requiring oxygen at 6 L via nasal cannula to maintain his pulse ox. I talked briefly with pulmonary medicine about his care also today as well as oncology. There is no consensus as to why the patient's oxygenation appeared normal 3 weeks ago and it has progressed to the point where the patient needs high flow oxygen. Patient does seem to be improving on his oxygenation but at a slow rate. Objective Data Objective Data Vital Signs: Vital Signs Temp Pulse Resp BP Pulse Ox 97.3 F L 100 20 H 139/77 H 93 12/26/20 14:00 12/26/20 19:07 12/26/20 19:07 12/26/20 14:00 12/26/20 19:09 Oxygen Flow Rate (L/min) 5 Oxygen Delivery Method Nasal Cannula Weight: 67 kg Body Mass Index (BMI) 24.0 Intake & Output: Intake and Output for Last 24 Hours 12/24/20 12/25/20 12/26/20 23:59 23:59 23:59 Intake Total 1680 / 1680 1620 / 1620 440 / 440 Output Total 3475 / 3475 2550 / 3000 901 / 901 Balance -1795 / -1795 -930 / -1380 -461 / -461 Medical Nutrition Assessment Dietitian: Nutrition Therapy Diagnosis Start: 12/21/20 09:42 Freq: Status: Active Protocol: Document 12/26/20 14:34 RMA (Rec: 12/26/20 14:34 RMA [id number]) Nutrition Malnutrition Evidence of Malnutrition Exists Yes Malnutrition (severe): Chronic Evidenced By Suboptimal Energy Intake ( Severe),Weight Loss (Severe) Intake Problem Inadequate Oral Intake Etiology r/t decreased appetite w/ increased nutrient needs d/t lung cancer Signs/Symptoms as evidenced by pt reports of chronically reduced appetite over past 5 months, estimated PO intake meeting <75% of pt's nutritional needs x 5 months, estimated PO intake meeting < 50% of pt's nutritional needs over past 4 days Status Active Problem Clinical Problem Chronic Disease or Condition Related Malnutrition Etiology Severe malnutrition in the context of chronic disease r/t inadequate energy intake w/ increased energy needs d/t cancer Signs/Symptoms as evidenced by unintentional wt loss of 21#/11.6% x 5 months, estimated PO intake meeting <75% of pt's nutritional needs x 5 months and Po meeting less than 50% estimated nutrition needs x past 7-10 days. Status Active Problem Recommendation Dietitian Recommendations/Changes Continue Regular diet as ordered. Will try 240ml ensure clear w/ breakfast and magic cup BID w / lunch and dinner as tolerated---d/c if pt refuses. Pt dislikes and previously refused ensure enlive. Lab / Micro Data Result Diagrams: 12/25/20 07:48 12/25/20 07:48 Micro: Microbiology 12/20/20 10:39 Blood Culture (Wb) - Right Forearm Blood Culture - Final No growth in 5 days. 12/20/20 10:28 Blood Culture (Wb) - Left Forearm Blood Culture - Final No growth in 5 days. 12/20/20 19:08 Mucosa - Nasopharyngeal Respiratory Panel (PCR) - Final Rhinovirus 12/20/20 21:30 Urine, Random Legionella Antigen - Final 12/20/20 21:30 Urine, Random Streptococcus pneumoniae Antigen (M - Final 12/20/20 10:30 Mucosa - Nose SARS-CoV-2 Antigen (Rapid) - Final Physical Exam Const alert, oriented x3, no apparent distress and healthy appearing General Appearance: cooperative, well kempt and well developed Orientation / Consciousness: awake, oriented to person, oriented to place and oriented to time HEENT normocephalic and moist oral mucous membranes Eyes PERRL, EOMs intact bilaterally and conjunctivae normal Neck nuchal rigidity, supple, no JVD, thyroid normal and no carotid bruits General: trachea midline Resp normal respiratory effort, no retractions and no use of accessory muscles Resp Narrative: There is noted to be inspiratory rales over the patient's right posterior lung field to auscultation Auscultation: rales; Negative for rhonchi or wheezes Cardio regular rate, regular rhythm, S1 normal heart sound, S2 normal heart sound, no murmurs, no rub and no gallops GI normal to inspection, nondistended, normoactive bowel sounds, soft to palpation, non-tender and non-distended Extremity no clubbing, cyanosis or edema Skin no rashes or lesions noted General Skin Exam: no breakdown Neuro oriented x3, CN's II-XII intact bilaterally, no focal motor deficits and no sensory deficits noted Sensorium / Orientation: awake and alert Speech: speech normal Psych thought process normal Psych Narrative: Patient's affect is flat Assessment & Plan Assessment/Plan (1) Rhinovirus infection: PLAN: 1. 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
[2020-12-27] VITALS (14 sets, daily range): BP systolic 131–157; BP diastolic 80–89; PULSE 80–115; RESP 18–20; TEMP 36.6–36.8; O2SAT 91–100
[2020-12-27] MEDS: HYDROmorphone 2 MG TABLET PO ×3 (04:20→21:43)
[2020-12-27] MEDS: 0.9% Saline Lock 10 ML Syringe IV ×2 (05:27→21:43)
[2020-12-27] MEDS: Ondansetron 4 MG/2 ML Vial IV (05:27)
[2020-12-27] MEDS: Acetaminophen 325 MG Tablet 650 MG PO (05:27)
[2020-12-27] MEDS: Ipratropium/Albuterol Sulfate 3 ML AMPUL.NEB INHALATION ×3 (06:38→19:37)
[2020-12-27] MEDS: Polyethylene Glycol 3350 17 GM PACKET PO (09:20)
[2020-12-27] MEDS: morphine SR 15 MG Tablet PO ×2 (09:20→20:01)
[2020-12-27] MEDS: QUEtiapine 25 MG Tablet PO ×2 (09:20→21:43)
[2020-12-27] MEDS: Enoxaparin 80 MG/0.8 ML Syringe 70 MG SC ×2 (09:20→21:42)
[2020-12-27] MEDS: LORazepam 0.5 MG Tablet PO (10:23)
--- NOTE | 2020-12-27 10:42 | CASEMGMT ---
[facility] palliative screening tool completed and pt does qualify for palliative c/s. Dr. Cameron aware and defers to oncology to speak with pt regarding same d/t current cancer treatment. Leyla MAGALLON CM
--- NOTE | 2020-12-27 10:59 | CASEMGMT ---
Pt to be sent home on [employer] and provided with Eliquis 30 day free trial card w/ instruction at this time. Pt states he would like [employer] for home oxygen, if qualifies. CM to follow. Leyla MAGALLON CM
--- NOTE | 2020-12-27 20:39 | PN.HOSP_ITS ---
Subjective Subjective Patient was seen and examined today, his oxygen requirement is improved over yesterday but the patient is still very weak, late this afternoon, he was able to walk with physical therapy, he seemed improved at this point. I talked to the family briefly along with the patient about possibly going to an extended care facility for short-term rehab services, family would prefer to take him home if possible, at this point physical therapy feels that he could probably go home rather than to an extended care facility. I will reevaluate the patient again tomorrow for home oxygen requirement. Patient's breath sounds over his right lung appear improved today. Objective Data Objective Data Vital Signs: Vital Signs Temp Pulse Resp BP Pulse Ox 97.8 F 92 18 140/87 H 96 12/27/20 20:00 12/27/20 20:00 12/27/20 20:00 12/27/20 20:00 12/27/20 20:00 Oxygen Flow Rate (L/min) 4 Oxygen Delivery Method Nasal Cannula Weight: 65.8 kg Body Mass Index (BMI) 24.0 Intake & Output: Intake and Output for Last 24 Hours 12/25/20 12/26/20 12/27/20 23:59 23:59 23:59 Intake Total 1620 / 1620 440 / 680 920 / 920 Output Total 2550 / 3000 901 / 1151 475 / 475 Balance -930 / -1380 -461 / -471 445 / 445 Medical Nutrition Assessment Dietitian: Nutrition Therapy Diagnosis Start: 12/21/20 09:42 Freq: Status: Active Protocol: Document 12/26/20 14:34 RMA (Rec: 12/26/20 14:34 RMA [id number]) Nutrition Malnutrition Evidence of Malnutrition Exists Yes Malnutrition (severe): Chronic Evidenced By Suboptimal Energy Intake ( Severe),Weight Loss (Severe) Intake Problem Inadequate Oral Intake Etiology r/t decreased appetite w/ increased nutrient needs d/t lung cancer Signs/Symptoms as evidenced by pt reports of chronically reduced appetite over past 5 months, estimated PO intake meeting <75% of pt's nutritional needs x 5 months, estimated PO intake meeting < 50% of pt's nutritional needs over past 4 days Status Active Problem Clinical Problem Chronic Disease or Condition Related Malnutrition Etiology Severe malnutrition in the context of chronic disease r/t inadequate energy intake w/ increased energy needs d/t cancer Signs/Symptoms as evidenced by unintentional wt loss of 21#/11.6% x 5 months, estimated PO intake meeting <75% of pt's nutritional needs x 5 months and Po meeting less than 50% estimated nutrition needs x past 7-10 days. Status Active Problem Recommendation Dietitian Recommendations/Changes Continue Regular diet as ordered. Will try 240ml ensure clear w/ breakfast and magic cup BID w / lunch and dinner as tolerated---d/c if pt refuses. Pt dislikes and previously refused ensure enlive. Lab / Micro Data Result Diagrams: 12/25/20 07:48 12/25/20 07:48 Micro: Microbiology 12/20/20 10:39 Blood Culture (Wb) - Right Forearm Blood Culture - Final No growth in 5 days. 12/20/20 10:28 Blood Culture (Wb) - Left Forearm Blood Culture - Final No growth in 5 days. 12/20/20 19:08 Mucosa - Nasopharyngeal Respiratory Panel (PCR) - Final Rhinovirus 12/20/20 21:30 Urine, Random Legionella Antigen - Final 12/20/20 21:30 Urine, Random Streptococcus pneumoniae Antigen (M - Final 12/20/20 10:30 Mucosa - Nose SARS-CoV-2 Antigen (Rapid) - Final Physical Exam Narrative Physical exam General: Alert, Oriented x3, Cooperative, BMI 23.1 kg/m? HEENT: Atraumatic, PERRLA, EOMI, Normocephalic Oral: No Gingival or Mucosal Lesions/ Ulcerations Neck: Supple, No JVD, Negative Carotid Bruits Lungs: Air entry severely diminished in bilateral lung bases. Expiratory phase prolonged. Severe hypoxia. Dyspnea on exertion Cardiovascular: Sinus rhythm, heart rate in 90s normal S1, Normal S2, No murmurs Abdomen: Tenderness present over right upper quadrant, right costal margin. Alanna er enlarged and tender. Bowel Sounds sluggish, soft, scaphoid. Nondistended : No renal angle tenderness. No suprapubic tenderness. Extremities: No edema, Capillary Refill Less than 3 Seconds Skin: No rashes, No breakdown Musculoskeletal: No Tenderness to Palpation of Joints or Extremities Neurological: Cranial nerves II-XII grossly intact, Deep Tendon Reflexes 2+/4 and Symmetrical, Neuro grossly intact Psych/Mental Status: Anxious. Const alert, oriented x3 and no apparent distress Constitutional Narrative: Patient appears cachectic and unwell General Appearance: cooperative, well kempt and well developed Orientation / Consciousness: awake, oriented to person, oriented to place and oriented to time HEENT normocephalic, head/scalp atraumatic and moist oral mucous membranes Head and Scalp: normocephalic Eyes PERRL, EOMs intact bilaterally and conjunctivae normal Neck nuchal rigidity, no lymphadenopathy, supple, no JVD, thyroid normal and no carotid bruits General: trachea midline Resp normal respiratory effort, no retractions and no use of accessory muscles Auscultation: diminished lung sounds; Negative for rales, rhonchi or wheezes Cardio regular rate, regular rhythm, S1 normal heart sound, S2 normal heart sound, no murmurs, no rub and no gallops Peripheral Pulses: pulses 2+ throughout GI normal to inspection, nondistended, normoactive bowel sounds, soft to palpation, non-tender and non-distended Extremity normal to inspection and no clubbing, cyanosis or edema Skin no rashes or lesions noted General Skin Exam: no breakdown Lesions: no lesions Rashes: no rashes Trauma: no lacerations or abrasions Neuro oriented x3, CN's II-XII intact bilaterally, no focal motor deficits, no sensory deficits noted and deep tendon reflexes 2+ bilaterally Sensorium / Orientation: awake and alert Speech: speech normal Psych mental status grossly normal and thought process normal Psych Narrative: Patient's affect is flat Assessment & Plan Assessment/Plan (1) Rhinovirus infection: PLAN: 1. 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 #6 chronic anxiety-patient is on Ativan at this time Charges/Coding Visit Charges Inpatient E&M: 02083 Subs Hosp L2
[2020-12-27] MEDS: traZODone 50 MG Tablet PO (23:10)
[2020-12-28] VITALS (11 sets, daily range): BP systolic 142–158; BP diastolic 73–89; PULSE 81–104; RESP 18–24; TEMP 36.1–36.6; O2SAT 91–97
[2020-12-28] MEDS: 0.9% Saline Lock 10 ML Syringe IV ×4 (05:22→20:59)
[2020-12-28] MEDS: HYDROmorphone 2 MG TABLET PO ×2 (05:27→17:32)
[2020-12-28] MEDS: Ipratropium/Albuterol Sulfate 3 ML AMPUL.NEB INHALATION ×2 (07:25→19:30)
[2020-12-28] MEDS: Enoxaparin 80 MG/0.8 ML Syringe 70 MG SC ×2 (08:45→21:08)
[2020-12-28] MEDS: morphine SR 15 MG Tablet PO ×2 (08:52→19:30)
[2020-12-28] MEDS: Polyethylene Glycol 3350 17 GM PACKET PO (08:52)
--- NOTE | 2020-12-28 09:45 | PN.CC_ITS ---
Assessment & Plan Assessment/Plan (1) COPD exacerbation: (2) Rhinovirus infection: (3) Pulmonary embolism: PLAN: RECOMMENDATIONS: 1. Continue to wean supplemental oxygen to maintain saturations at or above 90%. 2. Continue scheduled bronchodilator therapy and IV steroids. 3. Encourage incentive spirometer and mobilize patient as tolerated. 4. At discharge, I recommend a prolonged steroid taper over the course of 6 weeks. 5. Perform walking oximetry study today. The patient will need to be L to maintain saturations on 6 L/min or less to be a candidate for discharge. IMPRESSIONS: 1. Acute hypoxemic respiratory failure Likely multifactorial in etiology. 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 The patient has also tested positive for rhinovirus. While there is a possibility that the patient has underlying obstructive lung disease, a CTA chest also demonstrated diffuse bilateral groundglass changes, most pronounced throughout the right hemithorax. In addition, there does appear to be a background of chronic lung disease as well. The findings noted on his CT chest could certainly represent a hypersensitivity reaction to one of his prior antineoplastic treatment medications. I did call and personally speak with his oncologist, Dr. Durand, and reviewed the case with him. Given that his oxygenation status appears to be slowly improving, the plan will be to keep him on steroids and taper over the course of the next 6 weeks. He will be continued on scheduled bronchodilators as well. The patient will need to be set up for home-going supplemental O2. Continue systemic anticoagulation without interruption. 2. Disseminated small cell lung cancer/anxiety/anemia Complicates care, management, recovery and prognosis. Follow-up with oncology on outpatient basis. Continue anxiolytic therapy as prescribed. This note was generated with [employer] dictation software. It may contain incorrect words, spelling, and punctuation that were not noted in checking the note before signing. Subjective Subjective The patient was seen and examined at the bedside this morning. Events from the last 24 hours have been reviewed. The patient is currently afebrile, hemodynamically stable and maintaining appropriate oxygen saturations on 4 L/min via nasal cannula. The patient is documented to be overall net -4.5 L for the hospital admission. Although the patient's oxygenation status is slowly improving, he does continue to experience exertional dyspnea and chest tightness. Objective Data Objective Data The patient's most recent lab work, culture data and imaging studies have all been personally reviewed. Respiratory viral panel was positive for rhinovirus. Vital Signs: Vital Signs Temp Pulse Resp BP Pulse Ox 97.2 F L 81 18 158/76 H 93 12/28/20 08:39 12/28/20 08:39 12/28/20 08:39 12/28/20 08:39 12/28/20 08:39 Oxygen Flow Rate (L/min) 5 Oxygen Delivery Method Nasal Cannula Weight: 67.3 kg Body Mass Index (BMI) 24.0 Intake & Output: Intake and Output for Last 24 Hours 12/26/20 12/27/20 12/28/20 23:59 23:59 23:59 Intake Total 440 / 680 920 / 920 Output Total 901 / 1151 475 / 475 Balance -461 / -471 445 / 445 Medical Nutrition Assessment Dietitian: Nutrition Therapy Diagnosis Start: 12/21/20 09:42 Freq: Status: Active Protocol: Document 12/26/20 14:34 RMA (Rec: 12/26/20 14:34 RMA [id number]) Nutrition Malnutrition Evidence of Malnutrition Exists Yes Malnutrition (severe): Chronic Evidenced By Suboptimal Energy Intake ( Severe),Weight Loss (Severe) Intake Problem Inadequate Oral Intake Etiology r/t decreased appetite w/ increased nutrient needs d/t lung cancer Signs/Symptoms as evidenced by pt reports of chronically reduced appetite over past 5 months, estimated PO intake meeting <75% of pt's nutritional needs x 5 months, estimated PO intake meeting < 50% of pt's nutritional needs over past 4 days Status Active Problem Clinical Problem Chronic Disease or Condition Related Malnutrition Etiology Severe malnutrition in the context of chronic disease r/t inadequate energy intake w/ increased energy needs d/t cancer Signs/Symptoms as evidenced by unintentional wt loss of 21#/11.6% x 5 months, estimated PO intake meeting <75% of pt's nutritional needs x 5 months and Po meeting less than 50% estimated nutrition needs x past 7-10 days. Status Active Problem Recommendation Dietitian Recommendations/Changes Continue Regular diet as ordered. Will try 240ml ensure clear w/ breakfast and magic cup BID w / lunch and dinner as tolerated---d/c if pt refuses. Pt dislikes and previously refused ensure enlive. Lab / Micro Data Attestation: I reviewed the patient's lab results. Result Diagrams: 12/25/20 07:48 12/25/20 07:48 Micro: Microbiology 12/20/20 10:39 Blood Culture (Wb) - Right Forearm Blood Culture - Final No growth in 5 days. 12/20/20 10:28 Blood Culture (Wb) - Left Forearm Blood Culture - Final No growth in 5 days. 12/20/20 19:08 Mucosa - Nasopharyngeal Respiratory Panel (PCR) - Final Rhinovirus 12/20/20 21:30 Urine, Random Legionella Antigen - Final 12/20/20 21:30 Urine, Random Streptococcus pneumoniae Antigen (M - Final 12/20/20 10:30 Mucosa - Nose SARS-CoV-2 Antigen (Rapid) - Final Physical Exam Const alert General Appearance: cooperative and well developed HEENT normocephalic, head/scalp atraumatic and moist oral mucous membranes Eyes PERRL, EOMs intact bilaterally and conjunctivae normal Neck supple General: trachea midline Resp Auscultation: diminished lung sounds; Negative for rales, rhonchi or wheezes Cardio regular rate and regular rhythm GI normal to inspection, nondistended, normoactive bowel sounds Extremity no clubbing, cyanosis or edema Skin no rashes or lesions noted Neuro no focal motor deficits Psych cooperative and affect normal Charges/Coding Visit Charges Inpatient E&M: 02659 Subs Hosp L2
[2020-12-28] MEDS: fentaNYL 100 MCG/2 ML Ampul 50 MCG IV (10:23)
[2020-12-28] MEDS: QUEtiapine 25 MG Tablet PO (13:31)
[2020-12-28] MEDS: Ergocalciferol 1.25 MG (50, 000 UNIT) Capsule PO (13:31)
--- NOTE | 2020-12-28 15:39 | CASEMGMT ---
Addendum entered by Mauricio Schmitt 12/28/20 16:11: TC from [facility] stating they are able to accept pt. SOC will be either Sat or Sun. Pt made aware and are agreeable to same. Pt also provided w/[employer] savings card and instructed on how to activate. Pt made aware, if he has any questions re: same, to ask for SHERITA JAFFE. Addendum entered by Mauricio Schmitt 12/28/20 15:56: Pt's physical address: [address] [place] [address] Original Note: SHERITA JAFFE NOTE: Pt/ would like for pt to have C. Pt was provided with list of C providers including quality and resource use data and consistent with the patient's preferred geographic region, medical needs, and insurance network. Their preferred provider is [facility]. Discussed services available w/[facility]. They would like SN, PT, and OT. Order placed. Call placed to [facility] and VM left w/[facility] w/referral. Awaiting acceptance. Agutso CARIAS RN CM
--- NOTE | 2020-12-28 15:48 | CASEMGMT ---
SW was told that patient would like to do advance directives. SW met with patient, introduced self and role at [facility]. Patient's just stepped out. SW told him SW is getting ready to leave for the day, but SW would be more than happy to come back tomorrow. He said that is fine. SW went back to the room and introduced self to patient's . SW let her know above and she said that would be fine. Corina ELKINS
[2020-12-28] MEDS: Calcium Carbonate 500 MG Tablet 1000 MG PO (18:40)
--- NOTE | 2020-12-28 19:19 | PN.HOSP_ITS ---
Subjective Subjective Patient was seen and examined today, I talked with the patient and his extensively today, they have decided that the patient will go home after this hospitalization, home nursing and home rehab services will be set up for the patient. Patient's states that she will have to prepare the house for him to come home. I talked with physical therapy today and they stated that the patient is ambulating in the emanuel fairly well. Objective Data Objective Data Vital Signs: Vital Signs Temp Pulse Resp BP Pulse Ox 97.7 F L 91 18 155/73 H 97 12/28/20 14:40 12/28/20 14:56 12/28/20 14:40 12/28/20 14:40 12/28/20 14:40 Oxygen Flow Rate (L/min) 4 Oxygen Delivery Method Nasal Cannula Weight: 67.3 kg Body Mass Index (BMI) 24.0 Intake & Output: Intake and Output for Last 24 Hours 12/26/20 12/27/20 12/28/20 23:59 23:59 23:59 Intake Total 440 / 680 920 / 920 Output Total 901 / 1151 475 / 475 Balance -461 / -471 445 / 445 Medical Nutrition Assessment Dietitian: Nutrition Therapy Diagnosis Start: 12/21/20 09:42 Freq: Status: Active Protocol: Document 12/26/20 14:34 RMA (Rec: 12/26/20 14:34 RMA [id number]) Nutrition Malnutrition Evidence of Malnutrition Exists Yes Malnutrition (severe): Chronic Evidenced By Suboptimal Energy Intake ( Severe),Weight Loss (Severe) Intake Problem Inadequate Oral Intake Etiology r/t decreased appetite w/ increased nutrient needs d/t lung cancer Signs/Symptoms as evidenced by pt reports of chronically reduced appetite over past 5 months, estimated PO intake meeting <75% of pt's nutritional needs x 5 months, estimated PO intake meeting < 50% of pt's nutritional needs over past 4 days Status Active Problem Clinical Problem Chronic Disease or Condition Related Malnutrition Etiology Severe malnutrition in the context of chronic disease r/t inadequate energy intake w/ increased energy needs d/t cancer Signs/Symptoms as evidenced by unintentional wt loss of 21#/11.6% x 5 months, estimated PO intake meeting <75% of pt's nutritional needs x 5 months and Po meeting less than 50% estimated nutrition needs x past 7-10 days. Status Active Problem Recommendation Dietitian Recommendations/Changes Continue Regular diet as ordered. Will try 240ml ensure clear w/ breakfast and magic cup BID w / lunch and dinner as tolerated---d/c if pt refuses. Pt dislikes and previously refused ensure enlive. Lab / Micro Data Result Diagrams: 12/25/20 07:48 12/25/20 07:48 Micro: Microbiology 12/20/20 10:39 Blood Culture (Wb) - Right Forearm Blood Culture - Final No growth in 5 days. 12/20/20 10:28 Blood Culture (Wb) - Left Forearm Blood Culture - Final No growth in 5 days. 12/20/20 19:08 Mucosa - Nasopharyngeal Respiratory Panel (PCR) - Final Rhinovirus 12/20/20 21:30 Urine, Random Legionella Antigen - Final 12/20/20 21:30 Urine, Random Streptococcus pneumoniae Antigen (M - Final 12/20/20 10:30 Mucosa - Nose SARS-CoV-2 Antigen (Rapid) - Final Physical Exam Const alert, oriented x3 and no apparent distress Constitutional Narrative: Patient appears cachectic and unwell General Appearance: cooperative, well kempt and well developed Orientation / Consciousness: awake, oriented to person, oriented to place and oriented to time HEENT normocephalic, head/scalp atraumatic and moist oral mucous membranes Eyes PERRL, EOMs intact bilaterally and conjunctivae normal Neck nuchal rigidity, no lymphadenopathy, supple, no JVD, thyroid normal and no carotid bruits General: trachea midline Resp normal respiratory effort, no retractions and no use of accessory muscles Resp Narrative: There is noted to be inspiratory rales over the patient's right posterior lung field to auscultation Auscultation: rales and diminished lung sounds; Negative for rhonchi or wheezes Cardio regular rate, regular rhythm, S1 normal heart sound, S2 normal heart sound, no murmurs, no rub and no gallops Peripheral Pulses: pulses 2+ throughout GI normal to inspection, nondistended, normoactive bowel sounds, soft to palpation, non-tender and non-distended Extremity normal to inspection and no clubbing, cyanosis or edema Skin no rashes or lesions noted General Skin Exam: no breakdown Lesions: no lesions Rashes: no rashes Trauma: no lacerations or abrasions Neuro oriented x3, CN's II-XII intact bilaterally, no focal motor deficits, no sensory deficits noted and deep tendon reflexes 2+ bilaterally Sensorium / Orientation: awake and alert Speech: speech normal Psych mental status grossly normal and thought process normal Psych Narrative: Patient's affect is flat Assessment & Plan Assessment/Plan (1) Rhinovirus infection: PLAN: 1. 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 #6 chronic anxiety-patient is on Ativan at this time Charges/Coding Visit Charges Inpatient E&M: 77493 Subs Hosp L2
[2020-12-28] MEDS: Acetaminophen 325 MG Tablet 650 MG PO (20:58)
[2020-12-28] MEDS: LORazepam 0.5 MG Tablet PO (20:59)
[2020-12-28] MEDS: traZODone 50 MG Tablet PO (20:59)
[2020-12-29] VITALS (8 sets, daily range): BP systolic 139–150; BP diastolic 72–95; PULSE 88–121; RESP 17–20; TEMP 36.6–37.3; O2SAT 84–97
[2020-12-29] MEDS: HYDROmorphone 2 MG TABLET PO ×2 (01:25→12:47)
[2020-12-29] MEDS: 0.9% Saline Lock 10 ML Syringe IV ×2 (05:05→12:46)
[2020-12-29] MEDS: LORazepam 0.5 MG Tablet PO (05:05)
[2020-12-29] MEDS: Ipratropium/Albuterol Sulfate 3 ML AMPUL.NEB INHALATION ×2 (06:47→13:31)
[2020-12-29] MEDS: morphine SR 15 MG Tablet PO (07:36)
[2020-12-29] MEDS: Polyethylene Glycol 3350 17 GM PACKET PO (09:18)
[2020-12-29] MEDS: Enoxaparin 80 MG/0.8 ML Syringe 70 MG SC (09:18)
--- NOTE | 2020-12-29 10:46 | CASEMGMT ---
Addendum entered by Kay Wood 12/29/20 11:59: Pt/ updated on all, voice understanding and state no further questions/concerns/needs. Leyla MAGALLON CM Original Note: Pt qualifies for home oxygen 4L at rest and 6L with ambulation and had stated previously preference for [employer] for home oxygen. [place] [facility] notified of referral, voices understanding. [facility] updated on pt discharge and home oxygen need, voices understanding. Leyla MAGALLON CM
--- NOTE | 2020-12-29 11:28 | DCINST_ITS ---
Discharge Instructions Diet Discharge Diet: No restrictions Activity Discharge Activity: Return to Normal Activity Weight Bearing Status: Full weight bearing Follow Up Care Test Results: Test results from this visit will be discussed in further detail at your follow-up appointment, if applicable. Discharge Plan Admission Admit Date/Time: 12/20/20 12:51 Primary Reason for Your Visit: respiratory failure, pulmonary embolism Attending Provider: Serafin Cameron Primary Care Provider: Sammy Angel Consulting Providers: Sixto Jamison ; Braxton Akhtar ; Carlee Herrera CHIP BIN CONVEYOR TENDER Instructions Additional Instructions / Restrictions: Oxygen at 4 liters at rest, 6 liters when ambulating Discharge Orders/Prescriptions Prescriptions: New lorazepam [Ativan] 1 mg tablet 1 mg PO TID PRN (Reason: anxiety) Qty: 30 RF: 0 Eliquis DVT-PE Treat 30D Start 5 mg (74 tabs) tablets,dose pack 5 mg PO DAILY Qty: 74 RF: 0 prednisone 20 mg tablet 40 mg PO DAILY Qty: 36 RF: 0 Continued Century Adults 50 Plus 1 EACH tablet 1 tab PO DAILY RF: 0 ondansetron HCl 8 mg Tablet 8 mg PO Q8H PRN PRN (Reason: Nausea) RF: 0 ergocalciferol (vitamin D2) 50,000 unit Tablet 1 unit PO QWEEK RF: 0 hydromorphone 2 mg Tablet 2 mg PO Q6H PRN (Reason: Pain) RF: 0 promethazine 25 mg Tablet 25 mg PO Q6H PRN (Reason: Nausea) RF: 0 polyethylene glycol 3350 [Miralax] 17 gram/dose Powder 17 g PO DAILY RF: 0 Lactobacillus acidophilus Capsule 10 mg PO DAILY RF: 0 morphine 15 mg Tablet 15 mg PO BID RF: 0 trazodone 50 mg tablet PO DAILY PRN PRN (Reason: Insomnia/anxiety) RF: 0 Discontinued dexamethasone [Decadron] 4 mg Tablet 2 mg PO BID RF: 0 Referrals / Follow Up: Sammy Angel DO [Primary Care Provider] - Derek Durand DO [STAFF PHYSICIAN] - See Referral Note ( call for followup) Disposition Disposition (needs filled in before D/C Order can be placed): Home Health Service
--- NOTE | 2020-12-29 11:54 | CASEMGMT ---
SW completed Healthcare Power of Ring Cutter Lathe Operator and a Healthcare Living Will with patient. Copies were made and given to patient along with originals. SW also placed a copy of each in patient's chart. Corina ELKINS
--- NOTE | 2020-12-29 12:52 | CASEMGMT ---
Pt to be sent home on [employer] and $10 co-pay card already provided to pt. Med e-scribed to [facility] retail pharmacy and 30 day free trial card applied. Leyla MAGALLON CM
--- NOTE | 2020-12-30 10:13 | PCM.DC.SUM ---
Providers Date of Admission: 12/20/20 Date of Discharge: 12/29/20 Primary Care Physician: Dr. Sammy Angel, DO Consultations 12/20/20 18:54 Consult: Computational Geneticist / Pulmonary Medicine Routine Consulting Provider: [facility] Reason for Consult: PEs EMERGENT Consult: No MD Notified: Yes Date Notified: 12/20/20 Time Notified: 18:54 Method of Notification: Verbal Comments:: Nisha notified Shaheen Reason For Visit: PULMONARY EMBOLISM, HYPOXIA Diagnosis Discharge Diagnosis (1) Rhinovirus infection: Status: Acute Code(s): B34.8 - Other viral infections of unspecified site Plan: 1. 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 #5 severe protein and caloric malnutrition #6 chronic debility secondary to small cell lung cancer Medications at Discharge Home Medications Century Adults 50 Plus 1 tab PO DAILY 12/20/17 Lactobacillus acidophilus 10 mg PO DAILY 12/20/20 ergocalciferol (vitamin D2) 1 unit PO QWEEK 12/20/20 hydromorphone 2 mg PO Q6H PRN 12/20/20 morphine 15 mg PO BID 12/20/20 ondansetron HCl 8 mg PO Q8H PRN PRN 12/20/20 polyethylene glycol 3350 [Miralax] 17 g PO DAILY 12/20/20 promethazine 25 mg PO Q6H PRN 12/20/20 trazodone PO DAILY PRN PRN 12/21/20 apixaban [Eliquis DVT-PE Treat 30D Start] 5 mg PO DAILY #74 tab 12/29/20 lorazepam [Ativan] 1 mg PO TID PRN #30 tab 12/29/20 prednisone 40 mg PO DAILY #36 tab 12/29/20 Hospital Course Operations None Procedures None Summary of Care Provided Minutes Spent on Discharge: 32 Hospital Course: This 60-year-old white male was seen in the emergency room at [facility] with chief complaint of increased shortness of breath. Patient has a history of small cell lung cancer and is being treated with chemotherapy. Work-up in the emergency room included a CTA of the chest which was positive for pulmonary embolism. Patient was noted to be hypoxic on room air, patient was admitted to PCU and started on full anticoagulation. Patient's respiratory status declined however and he was transferred to ICU and seen in consultation by pulmonary medicine. Patient's respiratory panel obtained resulted positive for rhinovirus. Patient was placed on IV corticosteroids and aggressive aerosol treatments, he was subsequently transferred to PCU for further care. Patient remained on nasal cannula oxygen and could not be weaned to room air. Conversations were carried out with the patient and the patient's regarding discharge planning. On 12/29/2020, patient underwent home O2 qualification, it was noted that he required 6 L of oxygen to maintain a pulse ox of 90% while ambulating, at rest, patient required 4 L of oxygen to maintain a pulse ox of 94%. Patient's pulse ox at rest on room air was 88%. He was expected to be compliant with oxygen at home and outside the home at rest and when ambulating. On 12/29/2020, patient was seen and examined: On examination he appeared frail, he complained of generalized weakness. Vital signs as documented. Skin warm and dry and without overt rashes. Neck without JVD, neck was supple, trachea midline, thyroid was normal. Patient had hoarseness when speaking. Lungs-there is noted to be scattered inspiratory rales over the right lung, normal air movement was noted. Heart exam notable for regular rhythm, normal sounds and absence of murmurs, rubs or gallops. Abdomen unremarkable and without evidence of organomegaly, masses, or abdominal aortic enlargement. Bowel sounds are present, abdomen is not distended. Extremities nonedematous, no cyanosis was noted, no clubbing was noted. Neuro: Cranial nerves II through XII are grossly intact, no focal motor deficits were noted, sensation to light touch and pinprick intact, motor exam 5/5 throughout. Psych: Patient is alert and oriented x3, he does not appear anxious or depressed, he does not appear agitated. On 12/29/2020, patient was seen and examined and felt to be in stable condition for discharge home. He was discharged with home health care as well as home PT. Weight / BMI Weight Weight: 67.6 kg Body Mass Index (BMI) 24.0 ABG / Lab / Microbiology Data Result Diagrams: 12/25/20 07:48 12/25/20 07:48 Microbiology: Microbiology 12/20/20 10:39 Blood Culture (Wb) - Right Forearm Blood Culture - Final No growth in 5 days. 12/20/20 10:28 Blood Culture (Wb) - Left Forearm Blood Culture - Final No growth in 5 days. 12/20/20 19:08 Mucosa - Nasopharyngeal Respiratory Panel (PCR) - Final Rhinovirus 12/20/20 21:30 Urine, Random Legionella Antigen - Final 12/20/20 21:30 Urine, Random Streptococcus pneumoniae Antigen (M - Final 12/20/20 10:30 Mucosa - Nose SARS-CoV-2 Antigen (Rapid) - Final D/C Instructions Discharge Diet: No restrictions Weight Bearing Status: Full weight bearing Meaningful Use Info Meaningful Use Diagnoses (Choose all that apply): VTE VTE Anticoag overlap given w/in hospital stay or rx'd at dc?: No Pt receive overlap for 5 days?: No Reason overlap not ordered, prescribed, or given for 5 days: Treatment Not Indicated Discharge Plan Admission Admit Date/Time: 12/20/20 12:51 Primary Reason for Your Visit: respiratory failure, pulmonary embolism Attending Provider: Serafin Cameron Primary Care Provider: Sammy Angel Consulting Providers: Sixto Jamison ; Braxton Akhtar ; Carlee Herrera SENIOR DATA ARCHITECT Instructions Additional Instructions / Restrictions: Oxygen at 4 liters at rest, 6 liters when ambulating Discharge Orders/Prescriptions Prescriptions: New lorazepam [Ativan] 1 mg tablet 1 mg PO TID PRN (Reason: anxiety) Qty: 30 RF: 0 Eliquis DVT-PE Treat 30D Start 5 mg (74 tabs) tablets,dose pack 5 mg PO DAILY Qty: 74 RF: 0 prednisone 20 mg tablet 40 mg PO DAILY Qty: 36 RF: 0 Continued Century Adults 50 Plus 1 EACH tablet 1 tab PO DAILY RF: 0 ondansetron HCl 8 mg Tablet 8 mg PO Q8H PRN PRN (Reason: Nausea) RF: 0 ergocalciferol (vitamin D2) 50,000 unit Tablet 1 unit PO QWEEK RF: 0 hydromorphone 2 mg Tablet 2 mg PO Q6H PRN (Reason: Pain) RF: 0 promethazine 25 mg Tablet 25 mg PO Q6H PRN (Reason: Nausea) RF: 0 polyethylene glycol 3350 [Miralax] 17 gram/dose Powder 17 g PO DAILY RF: 0 Lactobacillus acidophilus Capsule 10 mg PO DAILY RF: 0 morphine 15 mg Tablet 15 mg PO BID RF: 0 trazodone 50 mg tablet PO DAILY PRN PRN (Reason: Insomnia/anxiety) RF: 0 Discontinued dexamethasone [Decadron] 4 mg Tablet 2 mg PO BID RF: 0 Referrals / Follow Up: Sammy Angel DO [Primary Care Provider] - 01/03/21 1:20 pm Derek Durand DO [STAFF PHYSICIAN] - See Referral Note (Go on Saturday and they will see you then.) Disposition Disposition (needs filled in before D/C Order can be placed): Home Health Service Charges/Coding Visit Charges Inpatient E&M: 80015 Disch Hosp
== END 2020-12-29 15:25 | disposition home health service (06) | DRG 175 ==
LOC: ED 11:36 → ICU 12-21 07:20 → PCU 12-21 09:13 → ICU 12-22 07:14 → PCU 12-26 07:15 → ICU 12-26 08:49
PROVIDERS: Internal Medicine; Internal Medicine Critical Care Medicine; Nurse Practitioner Family; Admitting Provider Internal Medicine; Emergency Provider Emergency Medicine; PCP Student in an Organized Health Care Education/Training Program; Visit Provider Internal Medicine
DX: I26.99 Other pulmonary embolism without acute cor pulmonale (principal); J96.01 Acute respiratory failure with hypoxia; E43 Unspecified severe protein-calorie malnutrition; C34.90 Malignant neoplasm of unspecified part of unspecified bronchus or lung; C79.51 Secondary malignant neoplasm of bone; C78.7 Secondary malignant neoplasm of liver and intrahepatic bile duct; J44.1 Chronic obstructive pulmonary disease with (acute) exacerbation; E87.1 Hypo-osmolality and hyponatremia; B97.89 Other viral agents as the cause of diseases classified elsewhere; D64.81 Anemia due to antineoplastic chemotherapy; R59.0 Localized enlarged lymph nodes; T45.1X5A Adverse effect of antineoplastic and immunosuppressive drugs, initial encounter; Z79.899 Other long term (current) drug therapy; Z68.22 Body mass index [BMI] 22.0-22.9, adult; Z87.891 Personal history of nicotine dependence; F41.9 Anxiety disorder, unspecified
CPT/HCPCS: 36415; 36600; 71275; 74022; 74177; 80048; 80053; 82803; 83605; 83880; 84484; 85025; 85027; 85610; 85730; 87040; 87426; 87449; 87633; 87635; 93005; 94640; 94660; 97110; 97116; 97162; 97166; 97530; 99285; 99406; J7030; J7050; Q9967; U0005; A4216; J1940; J2405; U0003